=== PATIENT | female | born 1950 | race Caucasian/White ===

== ENCOUNTER → 2017-03-27 | Outpatient (CLI) | payer OTHER ==
[~2017-03-27] MED LIST: CIPR400V6 PO; CLIN300C93 PO; LISI-167 PO; OMNIPAQUE 350 MG/ML, 100ML BOTTLE ONE; OXYC10TA6 PO
== END | disposition home or self-care (01) ==
LOC: CFH 08:45
PROVIDERS: ATTEND Surgery
DX: K43.9 Ventral hernia without obstruction or gangrene (principal); Z90.49 Acquired absence of other specified parts of digestive tract; Z88.0 Allergy status to penicillin; Z88.6 Allergy status to analgesic agent; Z88.1 Allergy status to other antibiotic agents
CPT/HCPCS: 74177; Q9967

== ENCOUNTER 2017-11-08 07:02 | Inpatient (IN) | payer OTHER ==
[~2017-11-08] VITALS: Ht 157.5 cm; Wt 88.2 kg
[2017-11-08] VITALS (7 sets, daily range): BP systolic 131–191; BP diastolic 72–100
[~2017-11-08 07:02] MED LIST changes: +CLIN300C8 PO; -CLIN300C93 PO; -OMNIPAQUE 350 MG/ML, 100ML BOTTLE ONE
[2017-11-08] MEDS ORDERED: SODIUM CHLORIDE 0.9% 1,000ML IVBOLUS ONE (07:30)
[2017-11-08 07:31] LABS: MEAN CORPUSCULAR HEMOGLOBIN 25.4 pg (27.0-34.8); MEAN CORPUSCULAR HGB CONC 31.9 g/dL (32.4-35.8); MEAN CORPUSCULAR VOLUME 79.7 fL (80-100); MEAN PLATELET VOLUME 10.8 fL (7.4-10.4); PLATELET COUNT 178 x10^3/uL (130-400); RED CELL DISTRIBUTION WIDTH 16.2 % (9.6-15.2)
[2017-11-08 07:42] LABS: ALANINE AMINOTRANSFERASE 14 U/L (12-78); ALBUMIN 3.2 g/dL (3.4-5.0); ANION GAP 8 mmol/L (5-15); CALCIUM 9.2 mg/dL (8.5-10.1); CHLORIDE 108 mmol/L (98-107); CREATININE 0.97 mg/dL (0.55-1.02)
[2017-11-08 07:45] LABS: ALKALINE PHOSPHATASE 124 U/L (45-117); BILIRUBIN,TOTAL 1.2 mg/dL (0.2-1.0); TOTAL PROTEIN 8.3 g/dL (6.4-8.2)
[2017-11-08 07:52] LABS: CULTURE INDICATED? YES; MICROSCOPIC INDICATED
[2017-11-08 08:42] LABS: MD YES
[2017-11-08 08:50] LABS: LYMPH#(MANUAL) 0.52 x10^3/uL (1-3.4); LYMPHS% (MANUAL) 4 % (22-44); MONOS#(MANUAL) 0.66 x10^3/uL (0.3-2.7); MONOS% (MANUAL) 5 % (2-9); SEG#(MANUAL) 11.92 x10^3/uL (1.8-6.8); SEGS% (MANUAL) 91 % (42-75)
[2017-11-08 08:51] LABS: LARGE PLATELETS 1+
[2017-11-08 08:52] LABS: <PLATELET ESTIMATE> ADEQUATE
[2017-11-08 08:54] LABS: HYPOCHROMIA 1+; MICROCYTOSIS 1+
[2017-11-08] MEDS ORDERED: CEFTRIAXONE PMX 1GM/50ML 50 ML IVPB ONE (10:00)
[2017-11-08] MEDS ORDERED: CEFTRIAXONE PMX 1GM/50ML 50 ML ONE (10:08)
[2017-11-08] MEDS ORDERED: hydrALAzine 20 MG/ML, 1ML ONE (11:25)
[2017-11-08] MEDS ORDERED: MORPHINE SULFATE 4 MG/ML, 1ML ONE (11:25)
[2017-11-08] MEDS ORDERED: hydrALAzine 20 MG/ML, 1ML IV PRN (11:30)
[2017-11-08] MEDS: MORPHINE SULFATE 4 MG/ML, 1ML IVPush PRN ×2 (11:32→16:04)
[2017-11-08] MEDS ORDERED: hydrALAzine 20 MG/ML, 1ML IVPush PRN (12:00)
[2017-11-08] MEDS ORDERED: OXYcodone IR 5MG TABLET PO PRN (12:00)
[2017-11-08] MEDS ORDERED: hydrALAzine 20 MG/ML, 1ML IV ONE (12:00)
[2017-11-08] MEDS ORDERED: morphine SULFATE 10 MG/ML, 1ML IVPush PRN (12:00)
[2017-11-08] MEDS ORDERED: ACETAMINOPHEN 325 MG TABLET PO PRN (12:00)
[2017-11-08] MEDS ORDERED: LABETALOL 5MG/ML, 20ML IVPush PRN (12:00)
[2017-11-08] MEDS ORDERED: ENALAPRILAT 1.25 MG/ML, 2ML IVPush PRN (12:00)
[2017-11-08] MEDS: ENALAPRILAT 1.25 MG/ML, 2ML IV SCH ×2 (12:30→18:39)
[2017-11-08 12:48] LABS: FREE T4 (FREE THYROXINE) 1.3 ng/dL (0.76-1.46); THYROID STIMULATING HORMONE 1.25 mIU/L (0.358-3.740)
[2017-11-08 12:58] LABS: HEMOGLOBIN A1C 6.3 % (4.2-6.3)
[2017-11-08] MEDS: D5%-0.9% NACL+KCL 20MEQ 1,000 ML IV SCH ×2 (13:35→22:01)
[2017-11-08] MEDS: HEPARIN 5,000 UNITS/ML, 1ML SQ SCH ×2 (13:39→22:01)
[2017-11-08] MEDS ORDERED: ALBUTEROL SULFATE 2.5 MG/3 ML NPPB PRN (15:00)
[2017-11-08] MEDS: ONDANSETRON 2MG/ML, 2ML IVPush PRN (16:04)
[2017-11-08] MEDS ORDERED: PROMETHAZINE 25 MG/ML, 1ML ONE (18:31)
[2017-11-08] MEDS: PROMETHAZINE 25 MG/ML, 1ML IM PRN (18:35)
[2017-11-09] VITALS (8 sets, daily range): BP systolic 147–188; BP diastolic 70–108
[2017-11-09] MEDS: ENALAPRILAT 1.25 MG/ML, 2ML IV SCH ×4 (00:49→18:28)
[2017-11-09] MEDS: ONDANSETRON 2MG/ML, 2ML IVPush PRN ×2 (00:55→15:45)
[2017-11-09 04:38] LABS: BASOPHILS % (AUTO) 0 % (0-1); EOSINOPHILS # (AUTO) 0.02 x10^3/uL (0-0.4); EOSINOPHILS % (AUTO) 0 % (1-7); LYMPHOCYTES % (AUTO) 6 % (22-44); MD NO; MEAN CORPUSCULAR HGB CONC 31.9 g/dL (32.4-35.8); MEAN CORPUSCULAR VOLUME 81.4 fL (80-100); MEAN PLATELET VOLUME 10.6 fL (7.4-10.4); MONOCYTES # (AUTO) 0.89 x10^3/uL (0.2-0.8); MONOCYTES % (AUTO) 7 % (2-9); NEUTROPHILS # (AUTO) 11.92 x10^3/uL (1.8-6.8); NEUTROPHILS % (AUTO) 87 % (42-75); PLATELET COUNT 160 x10^3/uL (130-400); RED BLOOD COUNT 5.22 x10^6/uL (3.82-5.3); RED CELL DISTRIBUTION WIDTH 16.1 % (9.6-15.2)
[2017-11-09 04:48] LABS: ALANINE AMINOTRANSFERASE 12 U/L (12-78); ALBUMIN 2.8 g/dL (3.4-5.0); ANION GAP 6 mmol/L (5-15); CALCIUM 7.8 mg/dL (8.5-10.1); CHLORIDE 114 mmol/L (98-107); CHOLESTEROL, TOTAL 133 mg/dL (140-239); CREATININE 1.03 mg/dL (0.55-1.02)
[2017-11-09 04:50] LABS: ALKALINE PHOSPHATASE 105 U/L (45-117); BILIRUBIN,TOTAL 1.4 mg/dL (0.2-1.0); HDL CHOL % 50 % (28-40); HDL CHOLESTEROL (DIRECT) 67 mg/dL (40-60); LDL CHOLESTEROL,CALCULATED 48 mg/dL (54-169); LDL/HDL RATIO 0.7 (0.5-3.0); TOTAL PROTEIN 6.9 g/dL (6.4-8.2); TRIGLYCERIDES 89 mg/dL (50-200); VLDL CHOLESTEROL 18 mg/dL (0-25)
[2017-11-09] MEDS: D5%-0.9% NACL+KCL 20MEQ 1,000 ML IV SCH ×2 (05:28→20:21)
[2017-11-09] MEDS: HEPARIN 5,000 UNITS/ML, 1ML SQ SCH ×3 (05:32→21:53)
[2017-11-09] MEDS: PROMETHAZINE 25 MG/ML, 1ML IM PRN (13:16)
[2017-11-09] MEDS ORDERED: OMNIPAQUE 350 MG/ML, 150 ML BOTTLE ONE (14:20)
[2017-11-10 00:21] VITALS: BP 120/68
[2017-11-10] MEDS: ENALAPRILAT 1.25 MG/ML, 2ML IV SCH ×4 (00:26→20:00)
[2017-11-10] MEDS: HEPARIN 5,000 UNITS/ML, 1ML SQ SCH ×4 (02:14→22:30)
[2017-11-10 03:20] VITALS: BP 133/71
[2017-11-10 04:28] LABS: BASOPHILS # (AUTO) 0.05 x10^3/uL (0-0.1); BASOPHILS % (AUTO) 0 % (0-1); EOSINOPHILS # (AUTO) 0.05 x10^3/uL (0-0.4); EOSINOPHILS % (AUTO) 0 % (1-7); LYMPHOCYTES # (AUTO) 1.42 x10^3/uL (1-3.4); LYMPHOCYTES % (AUTO) 10 % (22-44); MD NO; MEAN CORPUSCULAR HGB CONC 31.7 g/dL (32.4-35.8); MEAN PLATELET VOLUME 10.9 fL (7.4-10.4); MONOCYTES % (AUTO) 7 % (2-9); NEUTROPHILS # (AUTO) 11.64 x10^3/uL (1.8-6.8); NEUTROPHILS % (AUTO) 82 % (42-75); PLATELET COUNT 159 x10^3/uL (130-400); RED BLOOD COUNT 5.19 x10^6/uL (3.82-5.3); RED CELL DISTRIBUTION WIDTH 16.5 % (9.6-15.2)
[2017-11-10 04:33] LABS: ANION GAP 5 mmol/L (5-15); CALCIUM 8.4 mg/dL (8.5-10.1); CHLORIDE 119 mmol/L (98-107); CREATININE 1.06 mg/dL (0.55-1.02)
[2017-11-10 06:15] VITALS: BP 125/76
[2017-11-10 07:53] VITALS: BP 136/80
[2017-11-10] MEDS: D5%-0.9% NACL+KCL 20MEQ 1,000 ML IV SCH (08:50)
[2017-11-10] MEDS: D5%-0.45% NACL 1,000 ML IV SCH (11:39)
[2017-11-10] MEDS ORDERED: BUPIVACAINE/PF 0.5% ONE (12:20)
[2017-11-10] MEDS ORDERED: EPINEPHRINE 1 MG/ML, 1ML ONE (12:20)
[2017-11-10] MEDS: CIPROFLOXACIN/PMX 400MG/200ML 200 ML IV SCH (12:30)
[2017-11-10] MEDS ORDERED: FENTANYL PF 250 MCG/5ML ONE (12:44)
[2017-11-10] MEDS ORDERED: MIDAZOLAM 1 MG/ML, 2ML ONE (12:44)
[2017-11-10] MEDS ORDERED: ROCURONIUM 10 MG/ML,10ML ONE (12:45)
[2017-11-10] MEDS ORDERED: PROPOFOL 10 MG/ML, 20ML ONE (12:45)
[2017-11-10] MEDS ORDERED: GLYCOPYRROLATE 0.4 MG/2 ML, 2ML ONE ×2 (12:46→16:01)
[2017-11-10] MEDS ORDERED: SUCCINYLCHOLINE 20 MG/ML, 10ML ONE (12:46)
[2017-11-10] MEDS ORDERED: NEOSTIGMINE 1 MG/ML, 10ML ONE (12:46)
[2017-11-10] MEDS ORDERED: DEXAMETHASONE 4 MG/ML, 1ML ONE ×2 (12:47)
[2017-11-10] MEDS ORDERED: SODIUM CHLORIDE 0.9% PF 10ML ONE (12:47)
[2017-11-10] MEDS ORDERED: CEFAZOLIN 1,000 MG ONE ×2 (12:47)
[2017-11-10] MEDS ORDERED: ONDANSETRON 2MG/ML, 2ML ONE ×2 (12:47→17:04)
[2017-11-10] MEDS ORDERED: CIPROFLOXACIN/PMX 400MG/200ML 200 ML ONE (13:23)
[2017-11-10] MEDS ORDERED: PHENYLEPHRINE 10 MG/ML ONE (13:23)
[2017-11-10] MEDS ORDERED: METRONIDAZOLE PMX 500MG/100ML 100 ML ONE (13:23)
[2017-11-10] MEDS ORDERED: FENTANYL PF 100 MCG/2ML IV PRN (13:30)
[2017-11-10] MEDS ORDERED: hydrALAzine 20 MG/ML, 1ML IV PRN (13:30)
[2017-11-10] MEDS ORDERED: PROMETHAZINE 25 MG/ML, 1ML IV PRN (13:30)
[2017-11-10] MEDS ORDERED: ALBUTEROL SULFATE 2.5 MG/3 ML NPPB PRN (13:30)
[2017-11-10] MEDS ORDERED: LABETALOL 5MG/ML, 20ML IV PRN (13:30)
[2017-11-10] MEDS ORDERED: ONDANSETRON 2MG/ML, 2ML IVPush PRN (13:30)
[2017-11-10] MEDS ORDERED: MEPERIDINE/PF 25MG/0.5ML IVPush PRN (13:30)
[2017-11-10] MEDS ORDERED: PROMETHAZINE 12.5 MG SUPP PR PRN (13:30)
[2017-11-10] MEDS ORDERED: BUPIVACAINE/PF-EPI 0.5% 1:200K INFIL ONE (13:46)
[2017-11-10] MEDS ORDERED: HYDROmorphone PCA 30 MG/30 ML ONE (16:25)
[2017-11-10] MEDS: HYDROmorphone PCA 30 MG/30 ML IV PRN ×2 (16:45→16:51)
[2017-11-10 18:36] VITALS: BP 143/68
[2017-11-10] MEDS: ONDANSETRON 2MG/ML, 2ML IVPush PRN (19:07)
[2017-11-10 19:58] VITALS: BP 140/71
[2017-11-10] MEDS ORDERED: ACETAMINOPHEN 325 MG TABLET PO PRN (23:00)
[2017-11-11 00:45] VITALS: BP 134/66
[2017-11-11] MEDS: CIPROFLOXACIN/PMX 400MG/200ML 200 ML IV SCH ×2 (00:45→13:03)
[2017-11-11 03:09] VITALS: BP 128/70
[2017-11-11] MEDS: ENALAPRILAT 1.25 MG/ML, 2ML IV SCH ×4 (03:10→21:29)
[2017-11-11] MEDS ORDERED: HEPARIN 5,000 UNITS/ML, 1ML SQ SCH (04:00)
[2017-11-11 04:26] LABS: MEAN CORPUSCULAR HEMOGLOBIN 25.7 pg (27.0-34.8); MEAN CORPUSCULAR HGB CONC 31.5 g/dL (32.4-35.8); MEAN CORPUSCULAR VOLUME 81.6 fL (80-100); MEAN PLATELET VOLUME 10.8 fL (7.4-10.4); PLATELET COUNT 137 x10^3/uL (130-400); RED CELL DISTRIBUTION WIDTH 16.6 % (9.6-15.2)
[2017-11-11 04:37] LABS: ANION GAP 7 mmol/L (5-15); CALCIUM 8.1 mg/dL (8.5-10.1); CHLORIDE 116 mmol/L (98-107); CREATININE 1.35 mg/dL (0.55-1.02)
[2017-11-11 04:47] LABS: BASOPHILS # (AUTO) 0.02 x10^3/uL (0-0.1); BASOPHILS % (AUTO) 0 % (0-1); EOSINOPHILS % (AUTO) 0 % (1-7); LYMPHOCYTES # (AUTO) 0.52 x10^3/uL (1-3.4); LYMPHOCYTES % (AUTO) 2 % (22-44); MD SCAN; MONOCYTES # (AUTO) 1.16 x10^3/uL (0.2-0.8); MONOCYTES % (AUTO) 5 % (2-9); NEUTROPHILS # (AUTO) 23.91 x10^3/uL (1.8-6.8); NEUTROPHILS % (AUTO) 93 % (42-75)
[2017-11-11] MEDS: D5%-0.45% NACL 1,000 ML IV SCH ×2 (05:12→14:52)
[2017-11-11] MEDS: HEPARIN 5,000 UNITS/ML, 1ML SQ SCH ×3 (06:23→22:29)
[2017-11-11 07:54] VITALS: BP 136/68
[2017-11-11] MEDS: ONDANSETRON 2MG/ML, 2ML IVPush PRN (09:28)
[2017-11-11 14:28] VITALS: BP 133/74
[2017-11-11 19:02] VITALS: BP 132/72
[2017-11-12] MEDS: CIPROFLOXACIN/PMX 400MG/200ML 200 ML IV SCH ×2 (00:24→12:37)
[2017-11-12] MEDS: D5%-0.45% NACL 1,000 ML IV SCH ×3 (00:25→22:07)
[2017-11-12 01:07] VITALS: BP 105/51
[2017-11-12] MEDS: ENALAPRILAT 1.25 MG/ML, 2ML IV SCH ×4 (02:00→20:33)
[2017-11-12 02:10] VITALS: BP 120/56
[2017-11-12 02:40] VITALS: BP 103/52
[2017-11-12 04:46] LABS: MEAN CORPUSCULAR HEMOGLOBIN 25.7 pg (27.0-34.8); MEAN CORPUSCULAR HGB CONC 31.8 g/dL (32.4-35.8); MEAN CORPUSCULAR VOLUME 80.8 fL (80-100); MEAN PLATELET VOLUME 10.5 fL (7.4-10.4); PLATELET COUNT 116 x10^3/uL (130-400); RED BLOOD COUNT 4.32 x10^6/uL (3.82-5.3); RED CELL DISTRIBUTION WIDTH 16.3 % (9.6-15.2)
[2017-11-12 04:53] LABS: ANION GAP 5 mmol/L (5-15); CALCIUM 7.9 mg/dL (8.5-10.1); CHLORIDE 112 mmol/L (98-107); CREATININE 1.12 mg/dL (0.55-1.02)
[2017-11-12 05:59] LABS: BASOPHILS # (AUTO) 0.02 x10^3/uL (0-0.1); BASOPHILS % (AUTO) 0 % (0-1); EOSINOPHILS # (AUTO) 0.04 x10^3/uL (0-0.4); EOSINOPHILS % (AUTO) 0 % (1-7); LYMPHOCYTES # (AUTO) 0.99 x10^3/uL (1-3.4); LYMPHOCYTES % (AUTO) 5 % (22-44); MD SCAN; MONOCYTES % (AUTO) 5 % (2-9); NEUTROPHILS # (AUTO) 16.36 x10^3/uL (1.8-6.8); NEUTROPHILS % (AUTO) 89 % (42-75)
[2017-11-12] MEDS: HEPARIN 5,000 UNITS/ML, 1ML SQ SCH ×3 (06:04→22:03)
[2017-11-12 07:15] VITALS: BP 130/70
[2017-11-12 13:04] VITALS: BP 131/67
[2017-11-12 19:47] VITALS: BP 121/68
[2017-11-13] MEDS: CIPROFLOXACIN/PMX 400MG/200ML 200 ML IV SCH (00:01)
[2017-11-13 01:57] VITALS: BP 124/59
[2017-11-13] MEDS: ENALAPRILAT 1.25 MG/ML, 2ML IV SCH ×4 (02:00→21:14)
[2017-11-13 04:56] LABS: BASOPHILS # (AUTO) 0.07 x10^3/uL (0-0.1); BASOPHILS % (AUTO) 0 % (0-1); EOSINOPHILS # (AUTO) 0.26 x10^3/uL (0-0.4); EOSINOPHILS % (AUTO) 2 % (1-7); LYMPHOCYTES # (AUTO) 0.84 x10^3/uL (1-3.4); LYMPHOCYTES % (AUTO) 5 % (22-44); MD NO; MEAN CORPUSCULAR HEMOGLOBIN 26.1 pg (27.0-34.8); MEAN CORPUSCULAR HGB CONC 32.3 g/dL (32.4-35.8); MEAN CORPUSCULAR VOLUME 80.7 fL (80-100); MEAN PLATELET VOLUME 10.4 fL (7.4-10.4); MONOCYTES % (AUTO) 4 % (2-9); NEUTROPHILS # (AUTO) 14.41 x10^3/uL (1.8-6.8); NEUTROPHILS % (AUTO) 89 % (42-75); PLATELET COUNT 124 x10^3/uL (130-400); RED BLOOD COUNT 4.08 x10^6/uL (3.82-5.3); RED CELL DISTRIBUTION WIDTH 16.3 % (9.6-15.2)
[2017-11-13 05:06] LABS: ANION GAP 6 mmol/L (5-15); CALCIUM 8.2 mg/dL (8.5-10.1); CHLORIDE 107 mmol/L (98-107)
[2017-11-13 05:08] LABS: CREATININE 0.88 mg/dL (0.55-1.02)
[2017-11-13] MEDS: D5%-0.45% NACL 1,000 ML IV SCH (06:19)
[2017-11-13] MEDS: HEPARIN 5,000 UNITS/ML, 1ML SQ SCH ×3 (06:19→21:14)
[2017-11-13 08:21] VITALS: BP 129/61
[2017-11-13] MEDS ORDERED: D5%-0.45% NACL 1,000 ML IV SCH (09:30)
[2017-11-13 14:20] VITALS: BP 121/73
[2017-11-13 20:08] VITALS: BP 131/81
[2017-11-14 01:21] VITALS: BP 123/75
[2017-11-14] MEDS: ENALAPRILAT 1.25 MG/ML, 2ML IV SCH ×4 (01:52→20:20)
[2017-11-14 04:26] LABS: MEAN CORPUSCULAR HEMOGLOBIN 25.6 pg (27.0-34.8); MEAN CORPUSCULAR HGB CONC 32.2 g/dL (32.4-35.8); MEAN CORPUSCULAR VOLUME 79.6 fL (80-100); MEAN PLATELET VOLUME 10.9 fL (7.4-10.4); PLATELET COUNT 141 x10^3/uL (130-400); RED BLOOD COUNT 4.17 x10^6/uL (3.82-5.3); RED CELL DISTRIBUTION WIDTH 15.5 % (9.6-15.2)
[2017-11-14 04:46] LABS: CHLORIDE 109 mmol/L (98-107)
[2017-11-14 04:47] LABS: MD YES
[2017-11-14 04:50] LABS: ANION GAP 5 mmol/L (5-15); BAND#(MANUAL) 0.15 x10^3/uL; BANDS%(MANUAL) 1 % (0-7); CALCIUM 8.3 mg/dL (8.5-10.1); CREATININE 0.84 mg/dL (0.55-1.02); EOS#(MANUAL) 0.45 x10^3/uL (0.0-0.4); EOS% (MANUAL) 3 % (1-7); LYMPH#(MANUAL) 1.66 x10^3/uL (1-3.4); LYMPHS% (MANUAL) 11 % (22-44); MONOS#(MANUAL) 0.76 x10^3/uL (0.3-2.7); MONOS% (MANUAL) 5 % (2-9); MYELOCYTES# (MANUAL) 0.15 x10^3/uL (0-0); MYELOCYTES% (MANUAL) 1 % (0-0); SEG#(MANUAL) 11.93 x10^3/uL (1.8-6.8); SEGS% (MANUAL) 79 % (42-75)
[2017-11-14 04:51] LABS: <PLATELET ESTIMATE> ADEQUATE; ANISOCYTOSIS 1+; LARGE PLATELETS 1+
[2017-11-14] MEDS: HEPARIN 5,000 UNITS/ML, 1ML SQ SCH ×3 (05:57→22:41)
[2017-11-14 07:46] VITALS: BP 112/72
[2017-11-14 13:22] VITALS: BP 124/77
[2017-11-14 16:20] LABS: ANION GAP 6 mmol/L (5-15); CALCIUM 8.3 mg/dL (8.5-10.1); CHLORIDE 107 mmol/L (98-107)
[2017-11-14 16:22] LABS: CREATININE 0.85 mg/dL (0.55-1.02)
[2017-11-14 19:47] VITALS: BP 147/82
[2017-11-14 23:29] LABS: CULTURE INDICATED? YES; MICROSCOPIC INDICATED
[2017-11-15 01:13] VITALS: BP 147/80
[2017-11-15] MEDS: ENALAPRILAT 1.25 MG/ML, 2ML IV SCH ×4 (02:29→21:19)
[2017-11-15 04:58] LABS: BASOPHILS # (AUTO) 0.01 x10^3/uL (0-0.1); BASOPHILS % (AUTO) 0 % (0-1); EOSINOPHILS # (AUTO) 0.41 x10^3/uL (0-0.4); EOSINOPHILS % (AUTO) 3 % (1-7); LYMPHOCYTES # (AUTO) 0.85 x10^3/uL (1-3.4); LYMPHOCYTES % (AUTO) 6 % (22-44); MD NO; MEAN CORPUSCULAR HEMOGLOBIN 25.8 pg (27.0-34.8); MEAN CORPUSCULAR HGB CONC 32.1 g/dL (32.4-35.8); MEAN CORPUSCULAR VOLUME 80.4 fL (80-100); MEAN PLATELET VOLUME 10.6 fL (7.4-10.4); MONOCYTES # (AUTO) 0.93 x10^3/uL (0.2-0.8); MONOCYTES % (AUTO) 6 % (2-9); NEUTROPHILS % (AUTO) 85 % (42-75); PLATELET COUNT 154 x10^3/uL (130-400); RED BLOOD COUNT 4.24 x10^6/uL (3.82-5.3); RED CELL DISTRIBUTION WIDTH 15.6 % (9.6-15.2)
[2017-11-15 05:06] LABS: ANION GAP 4 mmol/L (5-15); CALCIUM 8.4 mg/dL (8.5-10.1); CHLORIDE 107 mmol/L (98-107); CREATININE 0.81 mg/dL (0.55-1.02)
[2017-11-15] MEDS: HEPARIN 5,000 UNITS/ML, 1ML SQ SCH ×3 (06:00→22:40)
[2017-11-15 07:09] VITALS: BP 131/77
[2017-11-15 13:16] VITALS: BP 129/75
[2017-11-15 19:01] VITALS: BP 151/77
[2017-11-16] MEDS: ENALAPRILAT 1.25 MG/ML, 2ML IV SCH ×4 (03:09→21:04)
[2017-11-16 03:11] VITALS: BP 143/80
[2017-11-16 04:42] LABS: BASOPHILS # (AUTO) 0.02 x10^3/uL (0-0.1); BASOPHILS % (AUTO) 0 % (0-1); EOSINOPHILS % (AUTO) 3 % (1-7); LYMPHOCYTES # (AUTO) 1.29 x10^3/uL (1-3.4); LYMPHOCYTES % (AUTO) 8 % (22-44); MD NO; MEAN CORPUSCULAR HEMOGLOBIN 25.5 pg (27.0-34.8); MEAN CORPUSCULAR HGB CONC 31.9 g/dL (32.4-35.8); MEAN CORPUSCULAR VOLUME 79.9 fL (80-100); MEAN PLATELET VOLUME 10.3 fL (7.4-10.4); MONOCYTES % (AUTO) 7 % (2-9); NEUTROPHILS # (AUTO) 13.22 x10^3/uL (1.8-6.8); NEUTROPHILS % (AUTO) 82 % (42-75); PLATELET COUNT 180 x10^3/uL (130-400); RED BLOOD COUNT 4.27 x10^6/uL (3.82-5.3); RED CELL DISTRIBUTION WIDTH 15.6 % (9.6-15.2)
[2017-11-16 04:49] LABS: ANION GAP 6 mmol/L (5-15); CALCIUM 8.2 mg/dL (8.5-10.1); CHLORIDE 107 mmol/L (98-107); CREATININE 0.85 mg/dL (0.55-1.02)
[2017-11-16] MEDS: HEPARIN 5,000 UNITS/ML, 1ML SQ SCH ×3 (06:19→22:37)
[2017-11-16 07:58] VITALS: BP 142/78
[2017-11-16 10:31] LABS: CLOSTRIDIUM DIFFICILE TOXIN POSITIVE (Negative)
[2017-11-16 10:34] LABS: CLOSTRIDIUM DIFFICILE ANTIGEN POSITIVE
[2017-11-16 13:01] VITALS: BP 144/83
[2017-11-16] MEDS: metroNIDAZOLE 500 MG TABLET PO SCH ×2 (16:31→22:37)
[2017-11-16 19:36] VITALS: BP 143/74
[2017-11-17 02:24] VITALS: BP 144/83
[2017-11-17] MEDS: ENALAPRILAT 1.25 MG/ML, 2ML IV SCH ×4 (03:10→21:12)
[2017-11-17] MEDS: ONDANSETRON 2MG/ML, 2ML IVPush PRN (03:18)
[2017-11-17 04:34] LABS: MEAN CORPUSCULAR HEMOGLOBIN 25.8 pg (27.0-34.8); MEAN CORPUSCULAR HGB CONC 32.4 g/dL (32.4-35.8); MEAN CORPUSCULAR VOLUME 79.6 fL (80-100); MEAN PLATELET VOLUME 10.8 fL (7.4-10.4); PLATELET COUNT 197 x10^3/uL (130-400); RED BLOOD COUNT 4.31 x10^6/uL (3.82-5.3); RED CELL DISTRIBUTION WIDTH 15.7 % (9.6-15.2)
[2017-11-17 04:42] LABS: ANION GAP 6 mmol/L (5-15); CHLORIDE 106 mmol/L (98-107); CREATININE 0.84 mg/dL (0.55-1.02)
[2017-11-17] MEDS: HEPARIN 5,000 UNITS/ML, 1ML SQ SCH ×3 (05:09→22:40)
[2017-11-17] MEDS: metroNIDAZOLE 500 MG TABLET PO SCH ×4 (05:09→22:40)
[2017-11-17 06:20] LABS: MD YES
[2017-11-17 06:22] LABS: BAND#(MANUAL) 0.17 x10^3/uL; BANDS%(MANUAL) 1 % (0-7); EOS% (MANUAL) 3 % (1-7); LYMPH#(MANUAL) 1.51 x10^3/uL (1-3.4); LYMPHS% (MANUAL) 9 % (22-44); METAMYELOCYTES# (MANUAL) 0.17 x10^3/uL (0-0); METAMYELOCYTES% (MANUAL) 1 % (0-1); MONOS#(MANUAL) 1.34 x10^3/uL (0.3-2.7); MONOS% (MANUAL) 8 % (2-9); SEGS% (MANUAL) 78 % (42-75)
[2017-11-17 06:23] LABS: ANISOCYTOSIS 1+; POLYCHROMASIA 1+
[2017-11-17 06:24] LABS: <PLATELET ESTIMATE> ADEQUATE; LARGE PLATELETS 1+
[2017-11-17 08:11] VITALS: BP 105/72
[2017-11-17 12:18] VITALS: BP 130/77
[2017-11-17 18:56] VITALS: BP 107/67
[2017-11-17 20:03] VITALS: BP 147/83
[2017-11-18 03:13] VITALS: BP 122/70
[2017-11-18] MEDS: ENALAPRILAT 1.25 MG/ML, 2ML IV SCH ×4 (03:15→22:13)
[2017-11-18 04:25] LABS: MEAN CORPUSCULAR HEMOGLOBIN 26.2 pg (27.0-34.8); MEAN CORPUSCULAR HGB CONC 32.6 g/dL (32.4-35.8); MEAN CORPUSCULAR VOLUME 80.3 fL (80-100); MEAN PLATELET VOLUME 10.1 fL (7.4-10.4); PLATELET COUNT 236 x10^3/uL (130-400); RED CELL DISTRIBUTION WIDTH 15.9 % (9.6-15.2)
[2017-11-18 04:33] LABS: ANION GAP 5 mmol/L (5-15); CALCIUM 8.1 mg/dL (8.5-10.1); CHLORIDE 108 mmol/L (98-107); CREATININE 0.93 mg/dL (0.55-1.02)
[2017-11-18 04:40] LABS: MD YES
[2017-11-18 04:41] LABS: BAND#(MANUAL) 0.37 x10^3/uL; BANDS%(MANUAL) 2 % (0-7); BASOS#(MANUAL) 0.37 x10^3/uL (0-0.1); BASOS% (MANUAL) 2 % (0-1); EOS#(MANUAL) 0.37 x10^3/uL (0.0-0.4); EOS% (MANUAL) 2 % (1-7); LYMPH#(MANUAL) 1.86 x10^3/uL (1-3.4); LYMPHS% (MANUAL) 10 % (22-44); MONOS#(MANUAL) 1.12 x10^3/uL (0.3-2.7); MONOS% (MANUAL) 6 % (2-9); MYELOCYTES# (MANUAL) 0.37 x10^3/uL (0-0); MYELOCYTES% (MANUAL) 2 % (0-0); SEG#(MANUAL) 14.14 x10^3/uL (1.8-6.8); SEGS% (MANUAL) 76 % (42-75)
[2017-11-18 04:42] LABS: <PLATELET ESTIMATE> ADEQUATE; ANISOCYTOSIS 1+; LARGE PLATELETS 1+; POLYCHROMASIA 1+
[2017-11-18] MEDS: ONDANSETRON 2MG/ML, 2ML IVPush PRN ×2 (05:16→22:13)
[2017-11-18] MEDS: metroNIDAZOLE 500 MG TABLET PO SCH ×4 (05:16→22:14)
[2017-11-18] MEDS: HEPARIN 5,000 UNITS/ML, 1ML SQ SCH ×3 (06:00→22:13)
[2017-11-18 07:40] VITALS: BP 135/78
[2017-11-18 12:47] VITALS: BP 143/83
[2017-11-18 20:11] VITALS: BP 134/79
[2017-11-19 02:14] VITALS: BP 126/77
[2017-11-19] MEDS: metroNIDAZOLE 500 MG TABLET PO SCH (04:19)
[2017-11-19] MEDS: ENALAPRILAT 1.25 MG/ML, 2ML IV SCH ×3 (04:20→17:28)
[2017-11-19 04:35] LABS: MEAN CORPUSCULAR HEMOGLOBIN 25.5 pg (27.0-34.8); MEAN CORPUSCULAR VOLUME 79.7 fL (80-100); MEAN PLATELET VOLUME 9.9 fL (7.4-10.4); PLATELET COUNT 256 x10^3/uL (130-400); RED BLOOD COUNT 4.44 x10^6/uL (3.82-5.3); RED CELL DISTRIBUTION WIDTH 15.9 % (9.6-15.2)
[2017-11-19 04:51] LABS: ANION GAP 6 mmol/L (5-15); CHLORIDE 107 mmol/L (98-107); CREATININE 0.93 mg/dL (0.55-1.02)
[2017-11-19 05:48] LABS: MD YES
[2017-11-19 05:49] LABS: BAND#(MANUAL) 0.84 x10^3/uL; BANDS%(MANUAL) 4 % (0-7); BASOS#(MANUAL) 0.21 x10^3/uL (0-0.1); BASOS% (MANUAL) 1 % (0-1); EOS#(MANUAL) 0.42 x10^3/uL (0.0-0.4); EOS% (MANUAL) 2 % (1-7); LYMPH#(MANUAL) 0.63 x10^3/uL (1-3.4); LYMPHS% (MANUAL) 3 % (22-44); MONOS#(MANUAL) 0.84 x10^3/uL (0.3-2.7); MONOS% (MANUAL) 4 % (2-9); SEG#(MANUAL) 18.15 x10^3/uL (1.8-6.8); SEGS% (MANUAL) 86 % (42-75)
[2017-11-19 05:50] LABS: <PLATELET ESTIMATE> ADEQUATE; ANISOCYTOSIS 1+; LARGE PLATELETS 1+; POLYCHROMASIA 1+
[2017-11-19] MEDS: HEPARIN 5,000 UNITS/ML, 1ML SQ SCH ×3 (06:31→21:20)
[2017-11-19 06:50] VITALS: BP 123/82
[2017-11-19] MEDS: VANCOMYCIN 50 MG/ML ORAL SUSP PO SCH ×3 (08:26→21:19)
[2017-11-19 13:20] VITALS: BP 123/74
[2017-11-19 20:00] VITALS: BP 127/73
[2017-11-20] MEDS: ENALAPRILAT 1.25 MG/ML, 2ML IV SCH ×4 (00:32→20:36)
[2017-11-20 02:00] VITALS: BP 119/70
[2017-11-20] MEDS: VANCOMYCIN 50 MG/ML ORAL SUSP PO SCH ×4 (04:18→21:53)
[2017-11-20 04:42] LABS: MEAN CORPUSCULAR HEMOGLOBIN 25.8 pg (27.0-34.8); MEAN CORPUSCULAR HGB CONC 32.2 g/dL (32.4-35.8); MEAN CORPUSCULAR VOLUME 79.9 fL (80-100); MEAN PLATELET VOLUME 9.9 fL (7.4-10.4); PLATELET COUNT 272 x10^3/uL (130-400); RED BLOOD COUNT 4.32 x10^6/uL (3.82-5.3); RED CELL DISTRIBUTION WIDTH 15.6 % (9.6-15.2)
[2017-11-20 04:57] LABS: CHLORIDE 104 mmol/L (98-107)
[2017-11-20 05:06] LABS: ALANINE AMINOTRANSFERASE 21 U/L (12-78); ALKALINE PHOSPHATASE 92 U/L (45-117); ANION GAP 9 mmol/L (5-15); BILIRUBIN,TOTAL 0.9 mg/dL (0.2-1.0); CALCIUM 7.9 mg/dL (8.5-10.1); CREATININE 0.95 mg/dL (0.55-1.02); TOTAL PROTEIN 6.2 g/dL (6.4-8.2)
[2017-11-20 05:55] LABS: MD YES
[2017-11-20 05:56] LABS: <PLATELET ESTIMATE> ADEQUATE; ANISOCYTOSIS 1+; BAND#(MANUAL) 0.23 x10^3/uL; BANDS%(MANUAL) 1 % (0-7); EOS#(MANUAL) 0.45 x10^3/uL (0.0-0.4); EOS% (MANUAL) 2 % (1-7); LYMPH#(MANUAL) 1.14 x10^3/uL (1-3.4); LYMPHS% (MANUAL) 5 % (22-44); MONOS#(MANUAL) 0.91 x10^3/uL (0.3-2.7); MONOS% (MANUAL) 4 % (2-9); POLYCHROMASIA 1+; SEG#(MANUAL) 19.98 x10^3/uL (1.8-6.8); SEGS% (MANUAL) 88 % (42-75)
[2017-11-20 05:57] LABS: LARGE PLATELETS 1+
[2017-11-20] MEDS: HEPARIN 5,000 UNITS/ML, 1ML SQ SCH ×3 (06:27→23:02)
[2017-11-20 07:57] VITALS: BP 117/70
[2017-11-20] MEDS: SODIUM CHLORIDE 0.9% 1,000 ML IV SCH ×3 (07:58→23:02)
[2017-11-20 08:10] VITALS: BP 112/70
[2017-11-20 09:44] LABS: CULTURE INDICATED? YES; MICROSCOPIC AUTO
[2017-11-20] MEDS ORDERED: OMNIPAQUE 350 MG/ML, 100ML BOTTLE ONE (12:28)
[2017-11-20] MEDS ORDERED: VANCOMYCIN PER PHARMACY MC PRN (13:30)
[2017-11-20 13:35] VITALS: BP 112/72
[2017-11-20] MEDS ORDERED: PHARMACOKINETIC CONSULTATION MC ONE (14:00)
[2017-11-20] MEDS ORDERED: PHARMACOKINETIC MONITORING MC PRN (14:00)
[2017-11-20] MEDS: MEROPENEM 1 GM in SODIUM CHLORIDE 0.9% 100 ML IV SCH ×2 (15:22→23:02)
[2017-11-20] MEDS: VANCOMYCIN 1,800 MG in SODIUM CHLORIDE 0.9% 250 ML IV SCH (16:23)
[2017-11-20] MEDS ORDERED: FENTANYL PF 250 MCG/5ML ONE (16:54)
[2017-11-20] MEDS ORDERED: LIDOCAINE GEL 2%, 5ML ONE (16:56)
[2017-11-20] MEDS ORDERED: PHENYLEPHRINE 10 MG/ML ONE (17:34)
[2017-11-20] MEDS ORDERED: FENTANYL PF 100 MCG/2ML ONE (18:53)
[2017-11-20] MEDS ORDERED: NEOSTIGMINE 1 MG/ML, 10ML ONE (19:05)
[2017-11-20] MEDS ORDERED: PROPOFOL 10 MG/ML, 20ML ONE (19:05)
[2017-11-20] MEDS ORDERED: DEXAMETHASONE 4 MG/ML, 1ML ONE (19:05)
[2017-11-20] MEDS ORDERED: ONDANSETRON 2MG/ML, 2ML ONE (19:05)
[2017-11-20] MEDS ORDERED: SUCCINYLCHOLINE 20 MG/ML, 10ML ONE (19:05)
[2017-11-20] MEDS ORDERED: GLYCOPYRROLATE 0.2MG/1ML, 5ML ONE (19:05)
[2017-11-20] MEDS ORDERED: CEFAZOLIN 1,000 MG ONE (19:05)
[2017-11-20] MEDS: FENTANYL PF 100 MCG/2ML IV PRN ×2 (19:08→19:25)
[2017-11-20 20:00] VITALS: BP 121/73
[2017-11-20] MEDS ORDERED: ONDANSETRON 2MG/ML, 2ML IVPush PRN (20:00)
[2017-11-20] MEDS ORDERED: LABETALOL 5MG/ML, 20ML IV PRN (20:00)
[2017-11-20] MEDS ORDERED: ONDANSETRON 2MG/ML, 2ML IV PRN (20:00)
[2017-11-20] MEDS ORDERED: hydrALAzine 20 MG/ML, 1ML IV PRN (20:00)
[2017-11-20] MEDS ORDERED: MEPERIDINE/PF 25MG/0.5ML IVPush PRN (20:00)
[2017-11-20] MEDS ORDERED: MIDAZOLAM 1 MG/ML, 2ML IV PRN (20:00)
[2017-11-20] MEDS ORDERED: ALBUTEROL/IPRATROPIUM 2.5MG/0.5MG, 3 ML NPPB PRN (20:00)
[2017-11-20] MEDS ORDERED: ALBUTEROL SULFATE 2.5 MG/3 ML NPPB PRN (20:00)
[2017-11-20] MEDS ORDERED: PROMETHAZINE 25 MG/ML, 1ML IV PRN (20:00)
[2017-11-20] MEDS ORDERED: FENTANYL PF 100 MCG/2ML IVPush PRN (20:30)
[2017-11-21 02:00] VITALS: BP 117/70
[2017-11-21] MEDS: ENALAPRILAT 1.25 MG/ML, 2ML IV SCH ×2 (02:37→07:59)
[2017-11-21 03:40] VITALS: BP 120/70
[2017-11-21] MEDS: VANCOMYCIN 50 MG/ML ORAL SUSP PO SCH ×4 (04:12→20:54)
[2017-11-21 04:54] LABS: MEAN CORPUSCULAR HEMOGLOBIN 25.7 pg (27.0-34.8); MEAN CORPUSCULAR HGB CONC 32.3 g/dL (32.4-35.8); MEAN CORPUSCULAR VOLUME 79.6 fL (80-100); MEAN PLATELET VOLUME 9.4 fL (7.4-10.4); PLATELET COUNT 263 x10^3/uL (130-400); RED BLOOD COUNT 4.13 x10^6/uL (3.82-5.3)
[2017-11-21 05:07] LABS: ALANINE AMINOTRANSFERASE 17 U/L (12-78); ALBUMIN 1.7 g/dL (3.4-5.0); ANION GAP 6 mmol/L (5-15); CALCIUM 7.3 mg/dL (8.5-10.1); CHLORIDE 110 mmol/L (98-107)
[2017-11-21 05:10] LABS: ALKALINE PHOSPHATASE 79 U/L (45-117); BILIRUBIN,TOTAL 0.9 mg/dL (0.2-1.0); CREATININE 0.91 mg/dL (0.55-1.02); TOTAL PROTEIN 5.7 g/dL (6.4-8.2)
[2017-11-21 05:27] LABS: BASOPHILS # (AUTO) 0.01 x10^3/uL (0-0.1); BASOPHILS % (AUTO) 0 % (0-1); EOSINOPHILS # (AUTO) 0.07 x10^3/uL (0-0.4); EOSINOPHILS % (AUTO) 0 % (1-7); LYMPHOCYTES # (AUTO) 1.06 x10^3/uL (1-3.4); LYMPHOCYTES % (AUTO) 4 % (22-44); MD SCAN; MONOCYTES # (AUTO) 1.82 x10^3/uL (0.2-0.8); MONOCYTES % (AUTO) 7 % (2-9); NEUTROPHILS # (AUTO) 23.84 x10^3/uL (1.8-6.8); NEUTROPHILS % (AUTO) 89 % (42-75)
[2017-11-21] MEDS: SODIUM CHLORIDE 0.9% 1,000 ML IV SCH (05:32)
[2017-11-21 06:51] VITALS: BP 97/50
[2017-11-21] MEDS: MEROPENEM 1 GM in SODIUM CHLORIDE 0.9% 100 ML IV SCH ×3 (07:58→23:08)
[2017-11-21] MEDS: HEPARIN 5,000 UNITS/ML, 1ML SQ SCH ×3 (07:59→23:08)
[2017-11-21] MEDS ORDERED: TPN PER PHARMACY IV SCH (12:00)
[2017-11-21 14:53] VITALS: BP 106/67
[2017-11-21] MEDS: VANCOMYCIN 1,800 MG in SODIUM CHLORIDE 0.9% 250 ML IV SCH (16:21)
[2017-11-21] MEDS ORDERED: DEXTROSE 70% IV SCH (17:00)
[2017-11-21] MEDS ORDERED: DEXTROSE 10% 500 ML IV PRN (17:00)
[2017-11-21] MEDS ORDERED: AMINO ACID 10% IV SCH (17:00)
[2017-11-21] MEDS ORDERED: FAT EMULSIONS IV SCH (17:00)
[2017-11-21] MEDS ORDERED: DEXTROSE 50%, 50ML SYRINGE IVPush PRN (17:00)
[2017-11-21] MEDS ORDERED: [UNRECOGNIZED DRUG - OTHER] IV SCH (17:00)
[2017-11-21] MEDS ORDERED: ENALAPRILAT 1.25 MG/ML, 2ML IV PRN (18:30)
[2017-11-21 20:53] VITALS: BP 120/77
[2017-11-21] MEDS: INSULIN REGULAR LOW DOSE Q6H X 48HRS SQ-INSULIN SCH (20:58)
[2017-11-21] MEDS ORDERED: SODIUM CHLORIDE 0.9% 1,000 ML IV SCH (22:30)
[2017-11-22 01:17] VITALS: BP 107/69
[2017-11-22] MEDS: INSULIN REGULAR LOW DOSE Q6H X 48HRS SQ-INSULIN SCH ×4 (03:00→20:57)
[2017-11-22] MEDS: VANCOMYCIN 50 MG/ML ORAL SUSP PO SCH ×4 (03:36→22:47)
[2017-11-22 03:55] LABS: MEAN CORPUSCULAR HEMOGLOBIN 25.5 pg (27.0-34.8); MEAN CORPUSCULAR HGB CONC 31.8 g/dL (32.4-35.8); MEAN CORPUSCULAR VOLUME 80.1 fL (80-100); MEAN PLATELET VOLUME 9.5 fL (7.4-10.4); PLATELET COUNT 280 x10^3/uL (130-400); RED BLOOD COUNT 3.93 x10^6/uL (3.82-5.3); RED CELL DISTRIBUTION WIDTH 16.5 % (9.6-15.2)
[2017-11-22 04:01] LABS: ALBUMIN 1.6 g/dL (3.4-5.0); ANION GAP 5 mmol/L (5-15); CALCIUM 7.2 mg/dL (8.5-10.1); CHLORIDE 112 mmol/L (98-107)
[2017-11-22 04:08] LABS: ALANINE AMINOTRANSFERASE 14 U/L (12-78); ALKALINE PHOSPHATASE 71 U/L (45-117); BILIRUBIN,TOTAL 0.5 mg/dL (0.2-1.0); CREATININE 0.87 mg/dL (0.55-1.02); PREALBUMIN 5.2 mg/dL (20.0-40.0); TOTAL PROTEIN 5.7 g/dL (6.4-8.2); TRIGLYCERIDES 101 mg/dL (50-200)
[2017-11-22 04:37] LABS: BASOPHILS # (AUTO) 0.01 x10^3/uL (0-0.1); BASOPHILS % (AUTO) 0 % (0-1); EOSINOPHILS # (AUTO) 0.29 x10^3/uL (0-0.4); EOSINOPHILS % (AUTO) 1 % (1-7); LYMPHOCYTES # (AUTO) 1.06 x10^3/uL (1-3.4); LYMPHOCYTES % (AUTO) 5 % (22-44); MD SCAN; MONOCYTES # (AUTO) 1.44 x10^3/uL (0.2-0.8); MONOCYTES % (AUTO) 7 % (2-9); NEUTROPHILS # (AUTO) 17.73 x10^3/uL (1.8-6.8); NEUTROPHILS % (AUTO) 86 % (42-75)
[2017-11-22 07:05] VITALS: BP 136/68
[2017-11-22] MEDS: HEPARIN 5,000 UNITS/ML, 1ML SQ SCH ×3 (07:56→22:49)
[2017-11-22] MEDS: MEROPENEM 1 GM in SODIUM CHLORIDE 0.9% 100 ML IV SCH ×2 (07:56→18:52)
[2017-11-22] MEDS: MICAFUNGIN 100 MG in SODIUM CHLORIDE 0.9% 100 ML IV SCH (13:06)
[2017-11-22] MEDS: VANCOMYCIN 1,800 MG in SODIUM CHLORIDE 0.9% 250 ML IV SCH (15:44)
[2017-11-22] MEDS ORDERED: AMINO ACID 10% IV SCH ×2 (17:00)
[2017-11-22] MEDS ORDERED: [UNRECOGNIZED DRUG - OTHER] IV SCH (17:00)
[2017-11-22] MEDS ORDERED: [UNRECOGNIZED DRUG - OTHER] IV SCH (17:00)
[2017-11-22] MEDS ORDERED: FAT EMULSIONS IV SCH ×2 (17:00)
[2017-11-22] MEDS ORDERED: DEXTROSE 70% IV SCH ×2 (17:00)
[2017-11-22 19:46] VITALS: BP 151/82
[2017-11-23 02:21] VITALS: BP 159/76
[2017-11-23] MEDS: INSULIN REGULAR LOW DOSE Q6H X 48HRS SQ-INSULIN SCH ×3 (03:06→15:23)
[2017-11-23] MEDS: VANCOMYCIN 50 MG/ML ORAL SUSP PO SCH ×4 (04:04→21:31)
[2017-11-23] MEDS: MEROPENEM 1 GM in SODIUM CHLORIDE 0.9% 100 ML IV SCH ×3 (05:15→21:31)
[2017-11-23 05:51] LABS: CHLORIDE 107 mmol/L (98-107)
[2017-11-23 05:56] LABS: ANION GAP 6 mmol/L (5-15); CALCIUM 7.8 mg/dL (8.5-10.1); CREATININE 0.89 mg/dL (0.55-1.02)
[2017-11-23] MEDS: HEPARIN 5,000 UNITS/ML, 1ML SQ SCH ×3 (06:32→23:30)
[2017-11-23 08:10] VITALS: BP 158/85
[2017-11-23] MEDS: MICAFUNGIN 100 MG in SODIUM CHLORIDE 0.9% 100 ML IV SCH (11:34)
[2017-11-23 12:31] VITALS: BP 158/87
[2017-11-23] MEDS: VANCOMYCIN 1,800 MG in SODIUM CHLORIDE 0.9% 250 ML IV SCH (14:42)
[2017-11-23] MEDS: FILTER, DISP 1.2 MICRON FOR TPN/PVN IV PRN (16:40)
[2017-11-23] MEDS ORDERED: AMINO ACID 10% IV SCH (17:00)
[2017-11-23] MEDS ORDERED: [UNRECOGNIZED DRUG - OTHER] IV SCH (17:00)
[2017-11-23] MEDS ORDERED: DEXTROSE 70% IV SCH (17:00)
[2017-11-23] MEDS ORDERED: FAT EMULSIONS IV SCH (17:00)
[2017-11-23 19:20] VITALS: BP 168/73
[2017-11-23 19:57] VITALS: BP 145/84
[2017-11-24 01:15] VITALS: BP 152/80
[2017-11-24] MEDS: VANCOMYCIN 50 MG/ML ORAL SUSP PO SCH ×4 (04:05→22:19)
[2017-11-24] MEDS: SODIUM CHLORIDE 0.9% 1,000 ML IV SCH (05:42)
[2017-11-24] MEDS: MEROPENEM 1 GM in SODIUM CHLORIDE 0.9% 100 ML IV SCH ×3 (05:42→22:22)
[2017-11-24 06:13] LABS: ANION GAP 7 mmol/L (5-15); CALCIUM 7.6 mg/dL (8.5-10.1); CHLORIDE 105 mmol/L (98-107)
[2017-11-24 06:14] LABS: CREATININE 0.81 mg/dL (0.55-1.02)
[2017-11-24 07:12] LABS: MD YES; MEAN CORPUSCULAR HEMOGLOBIN 25.6 pg (27.0-34.8); MEAN CORPUSCULAR HGB CONC 32.2 g/dL (32.4-35.8); MEAN CORPUSCULAR VOLUME 79.6 fL (80-100); PLATELET COUNT 328 x10^3/uL (130-400); RED BLOOD COUNT 4.08 x10^6/uL (3.82-5.3); RED CELL DISTRIBUTION WIDTH 15.9 % (9.6-15.2)
[2017-11-24] MEDS: HEPARIN 5,000 UNITS/ML, 1ML SQ SCH ×2 (07:14→16:05)
[2017-11-24 07:24] LABS: ANISOCYTOSIS 1+; BAND#(MANUAL) 0.15 x10^3/uL; BANDS%(MANUAL) 1 % (0-7); EOS#(MANUAL) 0.15 x10^3/uL (0.0-0.4); EOS% (MANUAL) 1 % (1-7); LYMPH#(MANUAL) 1.04 x10^3/uL (1-3.4); LYMPHS% (MANUAL) 7 % (22-44); MICROCYTOSIS 1+; MONOS#(MANUAL) 1.04 x10^3/uL (0.3-2.7); MONOS% (MANUAL) 7 % (2-9); SEG#(MANUAL) 12.43 x10^3/uL (1.8-6.8); SEGS% (MANUAL) 84 % (42-75)
[2017-11-24 07:25] LABS: <PLATELET ESTIMATE> ADEQUATE; LARGE PLATELETS 1+; POLYCHROMASIA 1+
[2017-11-24 10:05] VITALS: BP 153/86
[2017-11-24] MEDS: INSULIN REGULAR LOW DOSE QDAY SQ-INSULIN SCH (10:28)
[2017-11-24] MEDS: MICAFUNGIN 100 MG in SODIUM CHLORIDE 0.9% 100 ML IV SCH (12:15)
[2017-11-24] MEDS ORDERED: GASTROGRAFIN 120 ML SOLN PO ONE (13:59)
[2017-11-24 15:41] VITALS: BP 155/80
[2017-11-24] MEDS ORDERED: VANCOMYCIN 1,800 MG in SODIUM CHLORIDE 0.9% 250 ML IV SCH (16:00)
[2017-11-24] MEDS: VANCOMYCIN 1,500 MG in SODIUM CHLORIDE 0.9% 250 ML IV SCH (16:05)
[2017-11-24] MEDS: FILTER, DISP 1.2 MICRON FOR TPN/PVN IV PRN (16:15)
[2017-11-24] MEDS ORDERED: FAT EMULSIONS IV SCH (17:00)
[2017-11-24] MEDS ORDERED: DEXTROSE 70% IV SCH (17:00)
[2017-11-24] MEDS ORDERED: AMINO ACID 10% IV SCH (17:00)
[2017-11-24] MEDS ORDERED: [UNRECOGNIZED DRUG - OTHER] IV SCH (17:00)
[2017-11-24 19:08] VITALS: BP 131/82
[2017-11-25] MEDS: HEPARIN 5,000 UNITS/ML, 1ML SQ SCH ×3 (00:26→17:27)
[2017-11-25 02:06] VITALS: BP 163/86
[2017-11-25] MEDS: VANCOMYCIN 50 MG/ML ORAL SUSP PO SCH ×4 (04:36→22:22)
[2017-11-25 04:39] VITALS: BP 141/78
[2017-11-25 05:50] LABS: ANION GAP 8 mmol/L (5-15); CALCIUM 7.9 mg/dL (8.5-10.1); CHLORIDE 104 mmol/L (98-107); CREATININE 0.88 mg/dL (0.55-1.02)
[2017-11-25 06:14] LABS: MEAN CORPUSCULAR HEMOGLOBIN 25.9 pg (27.0-34.8); MEAN CORPUSCULAR HGB CONC 32.5 g/dL (32.4-35.8); MEAN CORPUSCULAR VOLUME 79.9 fL (80-100); MEAN PLATELET VOLUME 9.9 fL (7.4-10.4); PLATELET COUNT 338 x10^3/uL (130-400); RED BLOOD COUNT 4.37 x10^6/uL (3.82-5.3); RED CELL DISTRIBUTION WIDTH 15.9 % (9.6-15.2)
[2017-11-25] MEDS: MEROPENEM 1 GM in SODIUM CHLORIDE 0.9% 100 ML IV SCH ×3 (06:16→22:22)
[2017-11-25 06:29] LABS: BASOPHILS # (AUTO) 0.09 x10^3/uL (0-0.1); BASOPHILS % (AUTO) 1 % (0-1); EOSINOPHILS # (AUTO) 0.35 x10^3/uL (0-0.4); EOSINOPHILS % (AUTO) 3 % (1-7); LYMPHOCYTES % (AUTO) 10 % (22-44); MD SCAN; MONOCYTES # (AUTO) 1.66 x10^3/uL (0.2-0.8); MONOCYTES % (AUTO) 12 % (2-9); NEUTROPHILS # (AUTO) 10.61 x10^3/uL (1.8-6.8); NEUTROPHILS % (AUTO) 75 % (42-75)
[2017-11-25 07:34] VITALS: BP 149/83
[2017-11-25] MEDS ORDERED: OCTREOTIDE 100MCG/ML, 1ML (0.1MG/ML) SQ SCH (12:00)
[2017-11-25] MEDS: MICAFUNGIN 100 MG in SODIUM CHLORIDE 0.9% 100 ML IV SCH (12:30)
[2017-11-25] MEDS: OCTREOTIDE 100MCG/ML, 1ML (0.1MG/ML) SQ SCH ×2 (12:30→17:17)
[2017-11-25] MEDS: INSULIN REGULAR LOW DOSE QDAY SQ-INSULIN SCH (12:38)
[2017-11-25 13:04] VITALS: BP 150/83
[2017-11-25 13:53] VITALS: BP 134/81
[2017-11-25] MEDS ORDERED: AMINO ACID 10% IV SCH (17:00)
[2017-11-25] MEDS ORDERED: DEXTROSE 70% IV SCH (17:00)
[2017-11-25] MEDS ORDERED: [UNRECOGNIZED DRUG - OTHER] IV SCH (17:00)
[2017-11-25] MEDS ORDERED: FAT EMULSIONS IV SCH (17:00)
[2017-11-25] MEDS: FILTER, DISP 1.2 MICRON FOR TPN/PVN IV PRN (17:16)
[2017-11-25] MEDS: VANCOMYCIN 1,500 MG in SODIUM CHLORIDE 0.9% 250 ML IV SCH (17:17)
[2017-11-25 20:10] VITALS: BP 127/76
[2017-11-26] MEDS: HEPARIN 5,000 UNITS/ML, 1ML SQ SCH ×3 (00:28→17:05)
[2017-11-26 01:05] VITALS: BP 126/76
[2017-11-26] MEDS: MEROPENEM 1 GM in SODIUM CHLORIDE 0.9% 100 ML IV SCH ×4 (04:20→22:03)
[2017-11-26] MEDS: VANCOMYCIN 50 MG/ML ORAL SUSP PO SCH ×4 (04:30→22:03)
[2017-11-26 05:25] LABS: ALANINE AMINOTRANSFERASE 12 U/L (12-78); ALBUMIN 1.6 g/dL (3.4-5.0); ANION GAP 7 mmol/L (5-15); CALCIUM 7.8 mg/dL (8.5-10.1); CHLORIDE 106 mmol/L (98-107)
[2017-11-26 05:29] LABS: ALKALINE PHOSPHATASE 84 U/L (45-117); BILIRUBIN,TOTAL 0.8 mg/dL (0.2-1.0); CREATININE 0.88 mg/dL (0.55-1.02); PREALBUMIN 6.7 mg/dL (20.0-40.0); TOTAL PROTEIN 6.6 g/dL (6.4-8.2); TRIGLYCERIDES 123 mg/dL (50-200)
[2017-11-26 05:32] LABS: MEAN CORPUSCULAR HEMOGLOBIN 26.2 pg (27.0-34.8); MEAN CORPUSCULAR HGB CONC 32.6 g/dL (32.4-35.8); MEAN CORPUSCULAR VOLUME 80.4 fL (80-100); MEAN PLATELET VOLUME 9.9 fL (7.4-10.4); PLATELET COUNT 315 x10^3/uL (130-400); RED BLOOD COUNT 4.03 x10^6/uL (3.82-5.3); RED CELL DISTRIBUTION WIDTH 16.1 % (9.6-15.2)
[2017-11-26 06:14] LABS: MD YES
[2017-11-26 06:17] LABS: BAND#(MANUAL) 0.44 x10^3/uL; BANDS%(MANUAL) 4 % (0-7); BASOS#(MANUAL) 0.22 x10^3/uL (0-0.1); BASOS% (MANUAL) 2 % (0-1); EOS#(MANUAL) 0.55 x10^3/uL (0.0-0.4); EOS% (MANUAL) 5 % (1-7); LYMPH#(MANUAL) 1.85 x10^3/uL (1-3.4); LYMPHS% (MANUAL) 17 % (22-44); MONOS#(MANUAL) 1.09 x10^3/uL (0.3-2.7); MONOS% (MANUAL) 10 % (2-9); SEG#(MANUAL) 6.76 x10^3/uL (1.8-6.8); SEGS% (MANUAL) 62 % (42-75)
[2017-11-26 06:18] LABS: <PLATELET ESTIMATE> ADEQUATE; <PLT MORPHOLOGY> NORMAL PLT MORPH; ANISOCYTOSIS 1+; MICROCYTOSIS 1+; POLYCHROMASIA 1+
[2017-11-26 07:59] VITALS: BP 154/81
[2017-11-26] MEDS: OCTREOTIDE 100MCG/ML, 1ML (0.1MG/ML) SQ SCH ×3 (08:58→17:05)
[2017-11-26] MEDS: INSULIN REGULAR LOW DOSE QDAY SQ-INSULIN SCH (10:55)
[2017-11-26 12:27] VITALS: BP 145/81
[2017-11-26] MEDS: MICAFUNGIN 100 MG in SODIUM CHLORIDE 0.9% 100 ML IV SCH (13:32)
[2017-11-26] MEDS ORDERED: FAT EMULSIONS IV SCH (17:00)
[2017-11-26] MEDS ORDERED: AMINO ACID 10% IV SCH (17:00)
[2017-11-26] MEDS ORDERED: DEXTROSE 70% IV SCH (17:00)
[2017-11-26] MEDS ORDERED: [UNRECOGNIZED DRUG - OTHER] IV SCH (17:00)
[2017-11-26] MEDS: VANCOMYCIN 1,500 MG in SODIUM CHLORIDE 0.9% 250 ML IV SCH (17:05)
[2017-11-26] MEDS: FILTER, DISP 1.2 MICRON FOR TPN/PVN IV PRN (18:24)
[2017-11-26 19:26] VITALS: BP 153/79
[2017-11-27] MEDS: HEPARIN 5,000 UNITS/ML, 1ML SQ SCH ×3 (00:43→17:43)
[2017-11-27 01:12] VITALS: BP 159/81
[2017-11-27] MEDS: VANCOMYCIN 50 MG/ML ORAL SUSP PO SCH ×3 (03:48→17:43)
[2017-11-27 04:21] LABS: MEAN CORPUSCULAR HEMOGLOBIN 25.5 pg (27.0-34.8); MEAN CORPUSCULAR VOLUME 79.9 fL (80-100); MEAN PLATELET VOLUME 9.8 fL (7.4-10.4); PLATELET COUNT 314 x10^3/uL (130-400); RED CELL DISTRIBUTION WIDTH 15.7 % (9.6-15.2)
[2017-11-27 04:30] LABS: ANION GAP 8 mmol/L (5-15); CALCIUM 7.9 mg/dL (8.5-10.1); CHLORIDE 105 mmol/L (98-107); CREATININE 0.81 mg/dL (0.55-1.02)
[2017-11-27 05:55] LABS: BASOPHILS # (AUTO) 0.05 x10^3/uL (0-0.1); BASOPHILS % (AUTO) 1 % (0-1); EOSINOPHILS # (AUTO) 0.51 x10^3/uL (0-0.4); EOSINOPHILS % (AUTO) 5 % (1-7); LYMPHOCYTES # (AUTO) 1.28 x10^3/uL (1-3.4); LYMPHOCYTES % (AUTO) 13 % (22-44); MD SCAN; MONOCYTES # (AUTO) 1.31 x10^3/uL (0.2-0.8); MONOCYTES % (AUTO) 13 % (2-9); NEUTROPHILS # (AUTO) 6.78 x10^3/uL (1.8-6.8); NEUTROPHILS % (AUTO) 68 % (42-75)
[2017-11-27] MEDS: MEROPENEM 1 GM in SODIUM CHLORIDE 0.9% 100 ML IV SCH ×3 (06:38→22:28)
[2017-11-27 07:06] VITALS: BP 154/86
[2017-11-27] MEDS: OCTREOTIDE 100MCG/ML, 1ML (0.1MG/ML) SQ SCH ×3 (09:34→17:43)
[2017-11-27] MEDS: MICAFUNGIN 100 MG in SODIUM CHLORIDE 0.9% 100 ML IV SCH (11:24)
[2017-11-27] MEDS: INSULIN REGULAR LOW DOSE QDAY SQ-INSULIN SCH (11:24)
[2017-11-27 12:06] VITALS: BP 159/90
[2017-11-27] MEDS ORDERED: AMINO ACID 10% IV SCH (17:00)
[2017-11-27] MEDS ORDERED: [UNRECOGNIZED DRUG - OTHER] IV SCH (17:00)
[2017-11-27] MEDS ORDERED: DEXTROSE 70% IV SCH (17:00)
[2017-11-27] MEDS ORDERED: FAT EMULSIONS IV SCH (17:00)
[2017-11-27] MEDS: FILTER, DISP 1.2 MICRON FOR TPN/PVN IV PRN (19:08)
[2017-11-27 19:10] VITALS: BP 147/80
[2017-11-28] MEDS: VANCOMYCIN 50 MG/ML ORAL SUSP PO SCH ×4 (00:36→21:24)
[2017-11-28 01:15] VITALS: BP 141/85
[2017-11-28] MEDS: OCTREOTIDE 100MCG/ML, 1ML (0.1MG/ML) SQ SCH ×3 (05:07→21:24)
[2017-11-28] MEDS: HEPARIN 5,000 UNITS/ML, 1ML SQ SCH ×3 (05:07→21:24)
[2017-11-28] MEDS: VANCOMYCIN 1,500 MG in SODIUM CHLORIDE 0.9% 250 ML IV SCH (05:10)
[2017-11-28 05:15] LABS: MEAN CORPUSCULAR HEMOGLOBIN 25.7 pg (27.0-34.8); MEAN CORPUSCULAR HGB CONC 32.8 g/dL (32.4-35.8); MEAN CORPUSCULAR VOLUME 78.4 fL (80-100); MEAN PLATELET VOLUME 9.9 fL (7.4-10.4); PLATELET COUNT 283 x10^3/uL (130-400); RED BLOOD COUNT 3.99 x10^6/uL (3.82-5.3); RED CELL DISTRIBUTION WIDTH 15.6 % (9.6-15.2)
[2017-11-28 05:26] LABS: ANION GAP 8 mmol/L (5-15); CHLORIDE 103 mmol/L (98-107)
[2017-11-28 05:27] LABS: CREATININE 0.82 mg/dL (0.55-1.02)
[2017-11-28 05:51] LABS: BASOPHILS # (AUTO) 0.07 x10^3/uL (0-0.1); BASOPHILS % (AUTO) 1 % (0-1); EOSINOPHILS % (AUTO) 7 % (1-7); LYMPHOCYTES # (AUTO) 1.27 x10^3/uL (1-3.4); LYMPHOCYTES % (AUTO) 12 % (22-44); MD SCAN; MONOCYTES # (AUTO) 1.52 x10^3/uL (0.2-0.8); MONOCYTES % (AUTO) 15 % (2-9); NEUTROPHILS # (AUTO) 6.68 x10^3/uL (1.8-6.8); NEUTROPHILS % (AUTO) 65 % (42-75)
[2017-11-28 07:51] VITALS: BP 164/75
[2017-11-28] MEDS: MEROPENEM 1 GM in SODIUM CHLORIDE 0.9% 100 ML IV SCH ×3 (08:00→23:06)
[2017-11-28] MEDS: MICAFUNGIN 100 MG in SODIUM CHLORIDE 0.9% 100 ML IV SCH (13:30)
[2017-11-28] MEDS: INSULIN REGULAR LOW DOSE QDAY SQ-INSULIN SCH (13:30)
[2017-11-28 14:10] VITALS: BP 156/92
[2017-11-28] MEDS ORDERED: AMINO ACID 10% IV SCH (17:00)
[2017-11-28] MEDS ORDERED: [UNRECOGNIZED DRUG - OTHER] IV SCH (17:00)
[2017-11-28] MEDS ORDERED: DEXTROSE 70% IV SCH (17:00)
[2017-11-28] MEDS ORDERED: FAT EMULSIONS IV SCH (17:00)
[2017-11-28 19:18] VITALS: BP 151/82
[2017-11-29] VITALS (7 sets, daily range): BP systolic 123–162; BP diastolic 78–87
[2017-11-29] MEDS: VANCOMYCIN 50 MG/ML ORAL SUSP PO SCH ×4 (03:31→22:31)
[2017-11-29] MEDS: HEPARIN 5,000 UNITS/ML, 1ML SQ SCH ×3 (05:30→22:31)
[2017-11-29] MEDS: MEROPENEM 1 GM in SODIUM CHLORIDE 0.9% 100 ML IV SCH ×2 (07:33→16:35)
[2017-11-29] MEDS: OCTREOTIDE 100MCG/ML, 1ML (0.1MG/ML) SQ SCH ×3 (07:34→17:21)
[2017-11-29] MEDS: INSULIN REGULAR LOW DOSE QDAY SQ-INSULIN SCH (12:48)
[2017-11-29] MEDS: MICAFUNGIN 100 MG in SODIUM CHLORIDE 0.9% 100 ML IV SCH (12:49)
[2017-11-29] MEDS ORDERED: [UNRECOGNIZED DRUG - OTHER] IV SCH (17:00)
[2017-11-29] MEDS ORDERED: DEXTROSE 70% IV SCH (17:00)
[2017-11-29] MEDS ORDERED: AMINO ACID 10% IV SCH (17:00)
[2017-11-29] MEDS ORDERED: FAT EMULSIONS IV SCH (17:00)
[2017-11-29] MEDS: VANCOMYCIN 1,500 MG in SODIUM CHLORIDE 0.9% 250 ML IV SCH (17:27)
[2017-11-29] MEDS ORDERED: ONDANSETRON ODT 4 MG PO PRN (20:00)
[2017-11-30] MEDS: SODIUM CHLORIDE 0.9% 1,000 ML IV SCH (00:03)
[2017-11-30] MEDS: MEROPENEM 1 GM in SODIUM CHLORIDE 0.9% 100 ML IV SCH ×3 (00:04→17:35)
[2017-11-30 01:53] VITALS: BP 155/82
[2017-11-30] MEDS: VANCOMYCIN 50 MG/ML ORAL SUSP PO SCH ×4 (04:45→22:40)
[2017-11-30 05:32] LABS: BASOPHILS # (AUTO) 0.08 x10^3/uL (0-0.1); BASOPHILS % (AUTO) 1 % (0-1); EOSINOPHILS # (AUTO) 0.82 x10^3/uL (0-0.4); EOSINOPHILS % (AUTO) 7 % (1-7); LYMPHOCYTES # (AUTO) 1.21 x10^3/uL (1-3.4); LYMPHOCYTES % (AUTO) 10 % (22-44); MD NO; MEAN CORPUSCULAR HEMOGLOBIN 25.7 pg (27.0-34.8); MEAN CORPUSCULAR HGB CONC 32.3 g/dL (32.4-35.8); MEAN CORPUSCULAR VOLUME 79.6 fL (80-100); MEAN PLATELET VOLUME 10.9 fL (7.4-10.4); MONOCYTES # (AUTO) 1.31 x10^3/uL (0.2-0.8); MONOCYTES % (AUTO) 11 % (2-9); NEUTROPHILS # (AUTO) 8.58 x10^3/uL (1.8-6.8); NEUTROPHILS % (AUTO) 72 % (42-75); PLATELET COUNT 245 x10^3/uL (130-400)
[2017-11-30] MEDS: HEPARIN 5,000 UNITS/ML, 1ML SQ SCH ×3 (06:10→21:23)
[2017-11-30 06:35] LABS: ANION GAP 7 mmol/L (5-15); CALCIUM 8.3 mg/dL (8.5-10.1); CHLORIDE 104 mmol/L (98-107); CREATININE 0.76 mg/dL (0.55-1.02)
[2017-11-30 07:59] VITALS: BP 161/85
[2017-11-30] MEDS: OCTREOTIDE 100MCG/ML, 1ML (0.1MG/ML) SQ SCH ×3 (09:03→17:36)
[2017-11-30] MEDS: INSULIN REGULAR LOW DOSE QDAY SQ-INSULIN SCH (10:40)
[2017-11-30 11:43] LABS: ABSOLUTE RETICS # 0.115 x10^6/uL (0.5-2.5); RED BLOOD COUNT 4.22 x10^6/uL (3.82-5.3); RETICULOCYTE COUNT % 2.73 % (0.5-1.5)
[2017-11-30 12:50] VITALS: BP 160/94
[2017-11-30] MEDS: MICAFUNGIN 100 MG in SODIUM CHLORIDE 0.9% 100 ML IV SCH (12:56)
[2017-11-30] MEDS: LISINOPRIL 5 MG TABLET PO SCH (12:56)
[2017-11-30] MEDS ORDERED: AMINO ACID 10% IV SCH (17:00)
[2017-11-30] MEDS ORDERED: FAT EMULSIONS IV SCH (17:00)
[2017-11-30] MEDS ORDERED: [UNRECOGNIZED DRUG - OTHER] IV SCH (17:00)
[2017-11-30] MEDS ORDERED: DEXTROSE 70% IV SCH (17:00)
[2017-11-30] MEDS: FILTER, DISP 1.2 MICRON FOR TPN/PVN IV PRN (17:36)
[2017-11-30 19:17] VITALS: BP 156/85
[2017-12-01] MEDS: MEROPENEM 1 GM in SODIUM CHLORIDE 0.9% 100 ML IV SCH ×3 (00:34→17:21)
[2017-12-01 01:18] VITALS: BP 142/76
[2017-12-01] MEDS: VANCOMYCIN 1,500 MG in SODIUM CHLORIDE 0.9% 250 ML IV SCH (05:25)
[2017-12-01] MEDS: VANCOMYCIN 50 MG/ML ORAL SUSP PO SCH ×4 (05:25→22:20)
[2017-12-01] MEDS: HEPARIN 5,000 UNITS/ML, 1ML SQ SCH ×3 (05:26→21:17)
[2017-12-01 07:35] VITALS: BP 149/88
[2017-12-01] MEDS: LISINOPRIL 5 MG TABLET PO SCH (08:42)
[2017-12-01] MEDS: OCTREOTIDE 100MCG/ML, 1ML (0.1MG/ML) SQ SCH ×3 (08:43→17:23)
[2017-12-01] MEDS: INSULIN REGULAR LOW DOSE QDAY SQ-INSULIN SCH (11:00)
[2017-12-01] MEDS: IRON SUCROSE COMPLEX 100MG/5ML IV SCH (11:42)
[2017-12-01] MEDS: MICAFUNGIN 100 MG in SODIUM CHLORIDE 0.9% 100 ML IV SCH (12:31)
[2017-12-01 12:58] VITALS: BP 144/86
[2017-12-01] MEDS ORDERED: DEXTROSE 70% IV SCH (17:00)
[2017-12-01] MEDS ORDERED: AMINO ACID 10% IV SCH (17:00)
[2017-12-01] MEDS ORDERED: FAT EMULSIONS IV SCH (17:00)
[2017-12-01] MEDS ORDERED: [UNRECOGNIZED DRUG - OTHER] IV SCH (17:00)
[2017-12-01] MEDS: FILTER, DISP 1.2 MICRON FOR TPN/PVN IV PRN (17:41)
[2017-12-01 19:29] VITALS: BP 158/86
[2017-12-02] MEDS: MEROPENEM 1 GM in SODIUM CHLORIDE 0.9% 100 ML IV SCH ×3 (00:38→15:59)
[2017-12-02 01:27] VITALS: BP 147/81
[2017-12-02] MEDS: VANCOMYCIN 50 MG/ML ORAL SUSP PO SCH ×4 (04:53→22:40)
[2017-12-02] MEDS: HEPARIN 5,000 UNITS/ML, 1ML SQ SCH ×3 (04:53→21:33)
[2017-12-02 05:11] LABS: MEAN CORPUSCULAR HEMOGLOBIN 25.1 pg (27.0-34.8); MEAN CORPUSCULAR HGB CONC 32.1 g/dL (32.4-35.8); MEAN CORPUSCULAR VOLUME 78.2 fL (80-100); MEAN PLATELET VOLUME 11.5 fL (7.4-10.4); PLATELET COUNT 197 x10^3/uL (130-400); RED BLOOD COUNT 4.23 x10^6/uL (3.82-5.3); RED CELL DISTRIBUTION WIDTH 15.8 % (9.6-15.2)
[2017-12-02 05:19] LABS: CHLORIDE 106 mmol/L (98-107)
[2017-12-02 05:25] LABS: ANION GAP 7 mmol/L (5-15); CALCIUM 8.3 mg/dL (8.5-10.1); CREATININE 0.77 mg/dL (0.55-1.02)
[2017-12-02 05:56] LABS: BASOPHILS # (AUTO) 0.05 x10^3/uL (0-0.1); BASOPHILS % (AUTO) 0 % (0-1); EOSINOPHILS # (AUTO) 0.78 x10^3/uL (0-0.4); EOSINOPHILS % (AUTO) 6 % (1-7); LYMPHOCYTES # (AUTO) 1.19 x10^3/uL (1-3.4); LYMPHOCYTES % (AUTO) 9 % (22-44); MD SCAN; MONOCYTES # (AUTO) 1.29 x10^3/uL (0.2-0.8); MONOCYTES % (AUTO) 10 % (2-9); NEUTROPHILS # (AUTO) 9.78 x10^3/uL (1.8-6.8); NEUTROPHILS % (AUTO) 75 % (42-75)
[2017-12-02 07:54] VITALS: BP 155/91
[2017-12-02] MEDS: IRON SUCROSE COMPLEX 100MG/5ML IV SCH (08:01)
[2017-12-02] MEDS: LISINOPRIL 5 MG TABLET PO SCH (08:02)
[2017-12-02] MEDS: OCTREOTIDE 100MCG/ML, 1ML (0.1MG/ML) SQ SCH ×3 (09:46→17:39)
[2017-12-02] MEDS: INSULIN REGULAR LOW DOSE QDAY SQ-INSULIN SCH (11:09)
[2017-12-02] MEDS: MICAFUNGIN 100 MG in SODIUM CHLORIDE 0.9% 100 ML IV SCH (12:15)
[2017-12-02 12:49] VITALS: BP 144/84
[2017-12-02] MEDS: FILTER, DISP 1.2 MICRON FOR TPN/PVN IV PRN (16:56)
[2017-12-02] MEDS ORDERED: DEXTROSE 70% IV SCH (17:00)
[2017-12-02] MEDS ORDERED: FAT EMULSIONS IV SCH (17:00)
[2017-12-02] MEDS ORDERED: [UNRECOGNIZED DRUG - OTHER] IV SCH (17:00)
[2017-12-02] MEDS ORDERED: AMINO ACID 10% IV SCH (17:00)
[2017-12-02] MEDS: VANCOMYCIN 1,500 MG in SODIUM CHLORIDE 0.9% 250 ML IV SCH (17:39)
[2017-12-02 19:58] VITALS: BP 151/83
[2017-12-03] MEDS: MEROPENEM 1 GM in SODIUM CHLORIDE 0.9% 100 ML IV SCH ×3 (00:14→16:53)
[2017-12-03 01:29] VITALS: BP 146/79
[2017-12-03] MEDS: HEPARIN 5,000 UNITS/ML, 1ML SQ SCH ×3 (04:45→21:34)
[2017-12-03] MEDS: VANCOMYCIN 50 MG/ML ORAL SUSP PO SCH ×4 (04:46→22:34)
[2017-12-03 05:37] LABS: ANION GAP 8 mmol/L (5-15); CALCIUM 8.1 mg/dL (8.5-10.1); CHLORIDE 106 mmol/L (98-107)
[2017-12-03 05:59] LABS: CREATININE 0.84 mg/dL (0.55-1.02); PREALBUMIN 14.9 mg/dL (20.0-40.0)
[2017-12-03 07:56] VITALS: BP 139/83
[2017-12-03] MEDS: IRON SUCROSE COMPLEX 100MG/5ML IV SCH (08:11)
[2017-12-03] MEDS: LISINOPRIL 10 MG TABLET PO SCH (08:11)
[2017-12-03] MEDS: OCTREOTIDE 100MCG/ML, 1ML (0.1MG/ML) SQ SCH ×3 (08:24→17:56)
[2017-12-03] MEDS: INSULIN REGULAR LOW DOSE QDAY SQ-INSULIN SCH (11:17)
[2017-12-03] MEDS: MICAFUNGIN 100 MG in SODIUM CHLORIDE 0.9% 100 ML IV SCH (13:08)
[2017-12-03 13:58] VITALS: BP 138/77
[2017-12-03] MEDS: FILTER, DISP 1.2 MICRON FOR TPN/PVN IV PRN (16:54)
[2017-12-03] MEDS ORDERED: DEXTROSE 70% IV SCH (17:00)
[2017-12-03] MEDS ORDERED: FAT EMULSIONS IV SCH (17:00)
[2017-12-03] MEDS ORDERED: AMINO ACID 10% IV SCH (17:00)
[2017-12-03] MEDS ORDERED: [UNRECOGNIZED DRUG - OTHER] IV SCH (17:00)
[2017-12-03 19:28] VITALS: BP 166/83
[2017-12-03 20:33] VITALS: BP 148/69
[2017-12-04] MEDS: MEROPENEM 1 GM in SODIUM CHLORIDE 0.9% 100 ML IV SCH ×2 (00:12→09:03)
[2017-12-04 03:50] VITALS: BP 134/79
[2017-12-04] MEDS: VANCOMYCIN 50 MG/ML ORAL SUSP PO SCH ×4 (04:51→22:19)
[2017-12-04] MEDS: VANCOMYCIN 1,500 MG in SODIUM CHLORIDE 0.9% 250 ML IV SCH (04:51)
[2017-12-04] MEDS: HEPARIN 5,000 UNITS/ML, 1ML SQ SCH ×3 (04:51→20:52)
[2017-12-04 05:33] LABS: CHLORIDE 105 mmol/L (98-107)
[2017-12-04 05:42] LABS: MEAN CORPUSCULAR HEMOGLOBIN 25.8 pg (27.0-34.8); MEAN CORPUSCULAR HGB CONC 32.5 g/dL (32.4-35.8); MEAN CORPUSCULAR VOLUME 79.4 fL (80-100); RED BLOOD COUNT 4.18 x10^6/uL (3.82-5.3)
[2017-12-04 05:43] LABS: ANION GAP 9 mmol/L (5-15); CALCIUM 8.1 mg/dL (8.5-10.1); CREATININE 0.83 mg/dL (0.55-1.02)
[2017-12-04 06:29] LABS: MEAN PLATELET VOLUME 12.2 fL (7.4-10.4); PLATELET COUNT 174 x10^3/uL (130-400)
[2017-12-04 06:30] LABS: MD YES
[2017-12-04 06:32] LABS: BAND#(MANUAL) 0.25 x10^3/uL; BANDS%(MANUAL) 2 % (0-7); BASOS#(MANUAL) 0.13 x10^3/uL (0-0.1); BASOS% (MANUAL) 1 % (0-1); EOS#(MANUAL) 1.01 x10^3/uL (0.0-0.4); EOS% (MANUAL) 8 % (1-7); LYMPH#(MANUAL) 1.13 x10^3/uL (1-3.4); LYMPHS% (MANUAL) 9 % (22-44); METAMYELOCYTES# (MANUAL) 0.13 x10^3/uL (0-0); METAMYELOCYTES% (MANUAL) 1 % (0-1); MONOS#(MANUAL) 0.88 x10^3/uL (0.3-2.7); MONOS% (MANUAL) 7 % (2-9); SEG#(MANUAL) 9.07 x10^3/uL (1.8-6.8); SEGS% (MANUAL) 72 % (42-75)
[2017-12-04 06:35] LABS: ANISOCYTOSIS 1+
[2017-12-04 06:36] LABS: <PLATELET ESTIMATE> ADEQUATE; POLYCHROMASIA 1+
[2017-12-04 06:37] LABS: GIANT PLATELETS 1+; LARGE PLATELETS 1+
[2017-12-04 07:47] VITALS: BP 149/83
[2017-12-04] MEDS: OCTREOTIDE 100MCG/ML, 1ML (0.1MG/ML) SQ SCH ×3 (08:45→17:12)
[2017-12-04] MEDS: LISINOPRIL 10 MG TABLET PO SCH (08:52)
[2017-12-04] MEDS: IRON SUCROSE COMPLEX 100MG/5ML IV SCH (08:56)
[2017-12-04] MEDS: INSULIN REGULAR LOW DOSE QDAY SQ-INSULIN SCH (10:49)
[2017-12-04] MEDS: MICAFUNGIN 100 MG in SODIUM CHLORIDE 0.9% 100 ML IV SCH (11:55)
[2017-12-04 14:11] VITALS: BP 144/81
[2017-12-04] MEDS ORDERED: VISIPAQUE 270 MG/ML, 50ML BOTTLE ONE (15:42)
[2017-12-04] MEDS ORDERED: AMINO ACID 10% IV SCH (17:00)
[2017-12-04] MEDS ORDERED: FAT EMULSIONS IV SCH (17:00)
[2017-12-04] MEDS ORDERED: [UNRECOGNIZED DRUG - OTHER] IV SCH (17:00)
[2017-12-04] MEDS ORDERED: DEXTROSE 70% IV SCH (17:00)
[2017-12-04] MEDS: FILTER, DISP 1.2 MICRON FOR TPN/PVN IV PRN (17:11)
[2017-12-04 19:31] VITALS: BP 149/86
[2017-12-05 01:22] VITALS: BP 152/79
[2017-12-05] MEDS: VANCOMYCIN 50 MG/ML ORAL SUSP PO SCH ×4 (05:03→22:28)
[2017-12-05] MEDS: HEPARIN 5,000 UNITS/ML, 1ML SQ SCH ×3 (05:03→20:57)
[2017-12-05 05:37] LABS: BASOPHILS # (AUTO) 0.12 x10^3/uL (0-0.1); BASOPHILS % (AUTO) 1 % (0-1); EOSINOPHILS # (AUTO) 0.74 x10^3/uL (0-0.4); EOSINOPHILS % (AUTO) 7 % (1-7); LYMPHOCYTES # (AUTO) 1.26 x10^3/uL (1-3.4); LYMPHOCYTES % (AUTO) 11 % (22-44); MD NO; MEAN CORPUSCULAR HEMOGLOBIN 25.6 pg (27.0-34.8); MEAN CORPUSCULAR HGB CONC 32.3 g/dL (32.4-35.8); MEAN CORPUSCULAR VOLUME 79.2 fL (80-100); MEAN PLATELET VOLUME 12.5 fL (7.4-10.4); MONOCYTES # (AUTO) 1.17 x10^3/uL (0.2-0.8); MONOCYTES % (AUTO) 11 % (2-9); NEUTROPHILS # (AUTO) 7.86 x10^3/uL (1.8-6.8); NEUTROPHILS % (AUTO) 71 % (42-75); PLATELET COUNT 145 x10^3/uL (130-400); RED BLOOD COUNT 4.17 x10^6/uL (3.82-5.3)
[2017-12-05 07:57] VITALS: BP 147/83
[2017-12-05] MEDS: OCTREOTIDE 100MCG/ML, 1ML (0.1MG/ML) SQ SCH ×3 (10:12→17:03)
[2017-12-05] MEDS: IRON SUCROSE COMPLEX 100MG/5ML IV SCH (10:12)
[2017-12-05] MEDS: LISINOPRIL 10 MG TABLET PO SCH (10:13)
[2017-12-05] MEDS: INSULIN REGULAR LOW DOSE QDAY SQ-INSULIN SCH (10:14)
[2017-12-05] MEDS: MICAFUNGIN 100 MG in SODIUM CHLORIDE 0.9% 100 ML IV SCH (13:25)
[2017-12-05 14:15] VITALS: BP 145/85
[2017-12-05 14:51] LABS: ANION GAP 7 mmol/L (5-15); CALCIUM 8.2 mg/dL (8.5-10.1); CHLORIDE 104 mmol/L (98-107)
[2017-12-05 14:54] LABS: ALANINE AMINOTRANSFERASE 37 U/L (12-78); ALKALINE PHOSPHATASE 165 U/L (45-117); BILIRUBIN,TOTAL 0.7 mg/dL (0.2-1.0); CREATININE 0.82 mg/dL (0.55-1.02); TOTAL PROTEIN 7.3 g/dL (6.4-8.2)
[2017-12-05] MEDS ORDERED: FILTER, DISP 1.2 MICRON FOR TPN/PVN IV PRN (16:00)
[2017-12-05] MEDS ORDERED: AMINO ACID 10% IV SCH (17:00)
[2017-12-05] MEDS ORDERED: [UNRECOGNIZED DRUG - OTHER] IV SCH (17:00)
[2017-12-05] MEDS ORDERED: DEXTROSE 70% IV SCH (17:00)
[2017-12-05] MEDS ORDERED: FAT EMULSIONS IV SCH (17:00)
[2017-12-05] MEDS: VANCOMYCIN 1,500 MG in SODIUM CHLORIDE 0.9% 250 ML IV SCH (17:04)
[2017-12-05 19:10] VITALS: BP 146/82
[2017-12-06 01:10] VITALS: BP 137/82
[2017-12-06] MEDS: VANCOMYCIN 50 MG/ML ORAL SUSP PO SCH ×4 (05:37→22:25)
[2017-12-06] MEDS: HEPARIN 5,000 UNITS/ML, 1ML SQ SCH ×3 (05:37→20:51)
[2017-12-06 06:05] LABS: CHLORIDE 105 mmol/L (98-107)
[2017-12-06 06:09] LABS: MEAN CORPUSCULAR HEMOGLOBIN 25.3 pg (27.0-34.8); MEAN CORPUSCULAR HGB CONC 32.3 g/dL (32.4-35.8); MEAN CORPUSCULAR VOLUME 78.3 fL (80-100); RED CELL DISTRIBUTION WIDTH 16.3 % (9.6-15.2)
[2017-12-06 06:16] LABS: ALANINE AMINOTRANSFERASE 38 U/L (12-78); ALKALINE PHOSPHATASE 168 U/L (45-117); ANION GAP 8 mmol/L (5-15); BILIRUBIN,TOTAL 0.8 mg/dL (0.2-1.0); CALCIUM 8.3 mg/dL (8.5-10.1); CREATININE 0.84 mg/dL (0.55-1.02); TOTAL PROTEIN 7.5 g/dL (6.4-8.2)
[2017-12-06 06:33] LABS: BASOPHILS % (AUTO) 1 % (0-1); EOSINOPHILS # (AUTO) 0.59 x10^3/uL (0-0.4); EOSINOPHILS % (AUTO) 6 % (1-7); LYMPHOCYTES # (AUTO) 1.07 x10^3/uL (1-3.4); LYMPHOCYTES % (AUTO) 11 % (22-44); MD SCAN; MEAN PLATELET VOLUME 12.8 fL (7.4-10.4); MONOCYTES # (AUTO) 1.16 x10^3/uL (0.2-0.8); MONOCYTES % (AUTO) 12 % (2-9); NEUTROPHILS % (AUTO) 70 % (42-75); PLATELET COUNT 118 x10^3/uL (130-400)
[2017-12-06 07:05] VITALS: BP 129/53
[2017-12-06] MEDS: LISINOPRIL 20 MG TABLET PO SCH (09:11)
[2017-12-06] MEDS: INSULIN REGULAR LOW DOSE QDAY SQ-INSULIN SCH (09:11)
[2017-12-06] MEDS: OCTREOTIDE 100MCG/ML, 1ML (0.1MG/ML) SQ SCH ×3 (09:12→16:44)
[2017-12-06] MEDS: MICAFUNGIN 100 MG in SODIUM CHLORIDE 0.9% 100 ML IV SCH (11:58)
[2017-12-06 13:15] VITALS: BP 163/87
[2017-12-06 13:54] VITALS: BP 117/71
[2017-12-06] MEDS ORDERED: [UNRECOGNIZED DRUG - OTHER] IV SCH (17:00)
[2017-12-06] MEDS ORDERED: DEXTROSE 70% IV SCH (17:00)
[2017-12-06] MEDS ORDERED: AMINO ACID 10% IV SCH (17:00)
[2017-12-06] MEDS ORDERED: FILTER, DISP 1.2 MICRON FOR TPN/PVN IV PRN (17:00)
[2017-12-06] MEDS ORDERED: FAT EMULSIONS IV SCH (17:00)
[2017-12-06 19:48] VITALS: BP 156/86
[2017-12-07 03:09] VITALS: BP 160/89
[2017-12-07 04:49] LABS: ALANINE AMINOTRANSFERASE 36 U/L (12-78); ANION GAP 7 mmol/L (5-15); CALCIUM 8.1 mg/dL (8.5-10.1); CHLORIDE 105 mmol/L (98-107); CREATININE 0.81 mg/dL (0.55-1.02)
[2017-12-07 04:52] LABS: ALKALINE PHOSPHATASE 158 U/L (45-117); BILIRUBIN,TOTAL 0.8 mg/dL (0.2-1.0); TOTAL PROTEIN 7.3 g/dL (6.4-8.2); VANCOMYCIN,TROUGH 11.6 mcg/mL (5.0-10.0)
[2017-12-07] MEDS: HEPARIN 5,000 UNITS/ML, 1ML SQ SCH ×3 (05:06→20:25)
[2017-12-07] MEDS: VANCOMYCIN 50 MG/ML ORAL SUSP PO SCH ×4 (05:06→23:21)
[2017-12-07] MEDS: VANCOMYCIN 1,500 MG in SODIUM CHLORIDE 0.9% 250 ML IV SCH (05:06)
[2017-12-07 08:15] VITALS: BP 154/84
[2017-12-07] MEDS: OCTREOTIDE 100MCG/ML, 1ML (0.1MG/ML) SQ SCH ×3 (09:09→17:39)
[2017-12-07] MEDS: LISINOPRIL 20 MG TABLET PO SCH (09:09)
[2017-12-07] MEDS: INSULIN REGULAR LOW DOSE QDAY SQ-INSULIN SCH (10:56)
[2017-12-07] MEDS: MICAFUNGIN 100 MG in SODIUM CHLORIDE 0.9% 100 ML IV SCH (11:53)
[2017-12-07 14:30] VITALS: BP 169/93
[2017-12-07] MEDS ORDERED: [UNRECOGNIZED DRUG - OTHER] IV SCH (17:00)
[2017-12-07] MEDS ORDERED: FAT EMULSIONS IV SCH (17:00)
[2017-12-07] MEDS ORDERED: DEXTROSE 70% IV SCH (17:00)
[2017-12-07] MEDS ORDERED: AMINO ACID 10% IV SCH (17:00)
[2017-12-07] MEDS: FILTER, DISP 1.2 MICRON FOR TPN/PVN IV PRN (17:39)
[2017-12-07 20:21] VITALS: BP 154/79
[2017-12-08 01:30] VITALS: BP 149/84
[2017-12-08] MEDS: VANCOMYCIN 50 MG/ML ORAL SUSP PO SCH ×4 (05:09→23:13)
[2017-12-08] MEDS: HEPARIN 5,000 UNITS/ML, 1ML SQ SCH ×3 (05:09→20:29)
[2017-12-08 06:04] LABS: ALANINE AMINOTRANSFERASE 40 U/L (12-78); ALBUMIN 2.1 g/dL (3.4-5.0); ANION GAP 9 mmol/L (5-15); CALCIUM 8.4 mg/dL (8.5-10.1); CHLORIDE 104 mmol/L (98-107); CREATININE 0.85 mg/dL (0.55-1.02)
[2017-12-08 06:05] LABS: MEAN CORPUSCULAR HEMOGLOBIN 25.8 pg (27.0-34.8); MEAN CORPUSCULAR HGB CONC 32.6 g/dL (32.4-35.8); MEAN PLATELET VOLUME 12.5 fL (7.4-10.4); PLATELET COUNT 156 x10^3/uL (130-400); RED BLOOD COUNT 4.04 x10^6/uL (3.82-5.3); RED CELL DISTRIBUTION WIDTH 16.6 % (9.6-15.2)
[2017-12-08 06:06] LABS: ALKALINE PHOSPHATASE 156 U/L (45-117); BILIRUBIN,TOTAL 0.8 mg/dL (0.2-1.0); TOTAL PROTEIN 7.2 g/dL (6.4-8.2)
[2017-12-08 06:50] VITALS: BP 154/74
[2017-12-08 06:51] LABS: BASOPHILS # (AUTO) 0.11 x10^3/uL (0-0.1); BASOPHILS % (AUTO) 1 % (0-1); EOSINOPHILS # (AUTO) 0.49 x10^3/uL (0-0.4); EOSINOPHILS % (AUTO) 5 % (1-7); LYMPHOCYTES # (AUTO) 1.59 x10^3/uL (1-3.4); LYMPHOCYTES % (AUTO) 17 % (22-44); MD SCAN; MONOCYTES # (AUTO) 1.07 x10^3/uL (0.2-0.8); MONOCYTES % (AUTO) 11 % (2-9); NEUTROPHILS # (AUTO) 6.39 x10^3/uL (1.8-6.8); NEUTROPHILS % (AUTO) 66 % (42-75)
[2017-12-08] MEDS: LISINOPRIL 20 MG TABLET PO SCH (09:24)
[2017-12-08] MEDS: OCTREOTIDE 100MCG/ML, 1ML (0.1MG/ML) SQ SCH ×3 (11:13→17:51)
[2017-12-08] MEDS: INSULIN REGULAR LOW DOSE QDAY SQ-INSULIN SCH (11:17)
[2017-12-08] MEDS: MICAFUNGIN 100 MG in SODIUM CHLORIDE 0.9% 100 ML IV SCH (11:17)
[2017-12-08 12:41] VITALS: BP 167/84
[2017-12-08] MEDS ORDERED: AMINO ACID 10% IV SCH (17:00)
[2017-12-08] MEDS ORDERED: [UNRECOGNIZED DRUG - OTHER] IV SCH (17:00)
[2017-12-08] MEDS ORDERED: FAT EMULSIONS IV SCH (17:00)
[2017-12-08] MEDS ORDERED: DEXTROSE 70% IV SCH (17:00)
[2017-12-08] MEDS: VANCOMYCIN 1,500 MG in SODIUM CHLORIDE 0.9% 250 ML IV SCH (17:13)
[2017-12-08 19:48] VITALS: BP 163/90
[2017-12-09 02:50] VITALS: BP 152/80
[2017-12-09] MEDS: HEPARIN 5,000 UNITS/ML, 1ML SQ SCH ×3 (05:09→22:18)
[2017-12-09] MEDS: VANCOMYCIN 50 MG/ML ORAL SUSP PO SCH ×4 (05:09→23:23)
[2017-12-09 07:03] VITALS: BP 151/85
[2017-12-09] MEDS: LISINOPRIL 20 MG TABLET PO SCH (07:36)
[2017-12-09] MEDS: OCTREOTIDE 100MCG/ML, 1ML (0.1MG/ML) SQ SCH ×3 (07:37→17:24)
[2017-12-09] MEDS: MICAFUNGIN 100 MG in SODIUM CHLORIDE 0.9% 100 ML IV SCH (11:30)
[2017-12-09 13:10] VITALS: BP 150/79
[2017-12-09] MEDS ORDERED: [UNRECOGNIZED DRUG - OTHER] IV SCH (17:00)
[2017-12-09] MEDS ORDERED: FAT EMULSIONS IV SCH (17:00)
[2017-12-09] MEDS ORDERED: DEXTROSE 70% IV SCH (17:00)
[2017-12-09] MEDS ORDERED: AMINO ACID 10% IV SCH (17:00)
[2017-12-09] MEDS: INSULIN REGULAR MEDIUM DOSE QDAY SQ-INSULIN SCH (17:29)
[2017-12-09] MEDS: FILTER, DISP 1.2 MICRON FOR TPN/PVN IV PRN (17:29)
[2017-12-09 19:10] VITALS: BP 145/82
[2017-12-10 03:31] VITALS: BP 119/74
[2017-12-10] MEDS: VANCOMYCIN 1,500 MG in SODIUM CHLORIDE 0.9% 250 ML IV SCH (05:25)
[2017-12-10] MEDS: VANCOMYCIN 50 MG/ML ORAL SUSP PO SCH ×3 (05:25→18:23)
[2017-12-10] MEDS: INSULIN REGULAR MEDIUM DOSE QDAY SQ-INSULIN SCH ×2 (05:41→18:22)
[2017-12-10 06:03] LABS: ALANINE AMINOTRANSFERASE 33 U/L (12-78); ALBUMIN 2.1 g/dL (3.4-5.0); ANION GAP 7 mmol/L (5-15); CALCIUM 8.5 mg/dL (8.5-10.1); CHLORIDE 105 mmol/L (98-107); CREATININE 0.86 mg/dL (0.55-1.02)
[2017-12-10 06:08] LABS: ALKALINE PHOSPHATASE 150 U/L (45-117); PREALBUMIN 16.9 mg/dL (20.0-40.0); TOTAL PROTEIN 7.6 g/dL (6.4-8.2); TRIGLYCERIDES 182 mg/dL (50-200)
[2017-12-10] MEDS: HEPARIN 5,000 UNITS/ML, 1ML SQ SCH ×4 (06:24→22:00)
[2017-12-10 08:33] VITALS: BP 167/81
[2017-12-10] MEDS: LISINOPRIL 20 MG TABLET PO SCH (08:51)
[2017-12-10] MEDS: OCTREOTIDE 100MCG/ML, 1ML (0.1MG/ML) SQ SCH ×3 (08:52→18:23)
[2017-12-10] MEDS: MICAFUNGIN 100 MG in SODIUM CHLORIDE 0.9% 100 ML IV SCH (12:15)
[2017-12-10 15:11] VITALS: BP 158/90
[2017-12-10] MEDS ORDERED: AMINO ACID 10% IV SCH (17:00)
[2017-12-10] MEDS ORDERED: DEXTROSE 70% IV SCH (17:00)
[2017-12-10] MEDS ORDERED: FAT EMULSIONS IV SCH (17:00)
[2017-12-10] MEDS ORDERED: [UNRECOGNIZED DRUG - OTHER] IV SCH (17:00)
[2017-12-10] MEDS: FILTER, DISP 1.2 MICRON FOR TPN/PVN IV PRN (18:27)
[2017-12-10 19:29] VITALS: BP 157/84
[2017-12-11] MEDS: VANCOMYCIN 50 MG/ML ORAL SUSP PO SCH ×4 (00:14→18:44)
[2017-12-11 01:23] VITALS: BP 148/86
[2017-12-11] MEDS: INSULIN REGULAR MEDIUM DOSE QDAY SQ-INSULIN SCH ×2 (05:08→17:54)
[2017-12-11 05:25] LABS: CHLORIDE 105 mmol/L (98-107)
[2017-12-11 05:33] LABS: ANION GAP 7 mmol/L (5-15); CALCIUM 8.7 mg/dL (8.5-10.1); CREATININE 0.86 mg/dL (0.55-1.02)
[2017-12-11 06:17] LABS: MEAN CORPUSCULAR HEMOGLOBIN 25.6 pg (27.0-34.8); MEAN CORPUSCULAR HGB CONC 32.3 g/dL (32.4-35.8); MEAN CORPUSCULAR VOLUME 79.3 fL (80-100); MEAN PLATELET VOLUME 12.2 fL (7.4-10.4); PLATELET COUNT 184 x10^3/uL (130-400); RED BLOOD COUNT 4.09 x10^6/uL (3.82-5.3); RED CELL DISTRIBUTION WIDTH 17.7 % (9.6-15.2)
[2017-12-11 06:18] LABS: MD YES
[2017-12-11 06:29] LABS: <PLATELET ESTIMATE> ADEQUATE; <PLT MORPHOLOGY> NORMAL PLT MORPH; <RBC MORPHOLOGY> NORMAL; LYMPH#(MANUAL) 1.02 x10^3/uL (1-3.4); LYMPHS% (MANUAL) 10 % (22-44); MONOS% (MANUAL) 2 % (2-9); SEG#(MANUAL) 8.98 x10^3/uL (1.8-6.8); SEGS% (MANUAL) 88 % (42-75)
[2017-12-11] MEDS: ONDANSETRON 2MG/ML, 2ML IVPush PRN ×2 (07:36→22:54)
[2017-12-11 07:46] VITALS: BP 171/99
[2017-12-11] MEDS: OCTREOTIDE 100MCG/ML, 1ML (0.1MG/ML) SQ SCH ×3 (08:02→17:46)
[2017-12-11] MEDS: LISINOPRIL 20 MG TABLET PO SCH (10:00)
[2017-12-11] MEDS ORDERED: OMNIPAQUE 350 MG/ML, 100ML BOTTLE ONE (10:19)
[2017-12-11] MEDS: MICAFUNGIN 100 MG in SODIUM CHLORIDE 0.9% 100 ML IV SCH (11:54)
[2017-12-11] MEDS: HEPARIN 5,000 UNITS/ML, 1ML SQ SCH (12:50)
[2017-12-11 13:06] VITALS: BP 125/83
[2017-12-11] MEDS ORDERED: FAT EMULSIONS IV SCH (17:00)
[2017-12-11] MEDS ORDERED: DEXTROSE 70% IV SCH (17:00)
[2017-12-11] MEDS ORDERED: AMINO ACID 10% IV SCH (17:00)
[2017-12-11] MEDS ORDERED: [UNRECOGNIZED DRUG - OTHER] IV SCH (17:00)
[2017-12-11] MEDS: VANCOMYCIN 1,500 MG in SODIUM CHLORIDE 0.9% 250 ML IV SCH (17:46)
[2017-12-11 18:07] LABS: CLOSTRIDIUM DIFFICILE ANTIGEN NEGATIVE; CLOSTRIDIUM DIFFICILE TOXIN NEGATIVE (Negative)
[2017-12-11 20:36] VITALS: BP 136/87
[2017-12-12] MEDS: VANCOMYCIN 50 MG/ML ORAL SUSP PO SCH (00:47)
[2017-12-12 01:54] VITALS: BP 138/87
[2017-12-12] MEDS: INSULIN REGULAR MEDIUM DOSE QDAY SQ-INSULIN SCH ×2 (06:30→16:25)
[2017-12-12 06:35] LABS: ANION GAP 7 mmol/L (5-15); CALCIUM 8.1 mg/dL (8.5-10.1); CHLORIDE 105 mmol/L (98-107); CREATININE 0.91 mg/dL (0.55-1.02)
[2017-12-12 08:13] VITALS: BP 134/77
[2017-12-12] MEDS: OCTREOTIDE 100MCG/ML, 1ML (0.1MG/ML) SQ SCH ×3 (09:09→16:19)
[2017-12-12] MEDS: LISINOPRIL 20 MG TABLET PO SCH (09:09)
[2017-12-12] MEDS: SODIUM CHLORIDE 0.9% 1,000 ML IV SCH (12:09)
[2017-12-12] MEDS: MICAFUNGIN 100 MG in SODIUM CHLORIDE 0.9% 100 ML IV SCH (12:09)
[2017-12-12] MEDS ORDERED: LIDOCAINE-MPF 1%, 5ML ONE (12:38)
[2017-12-12] MEDS ORDERED: MIDAZOLAM 1 MG/ML, 5ML ONE ×2 (13:02)
[2017-12-12] MEDS ORDERED: FENTANYL PF 100 MCG/2ML ONE (13:02)
[2017-12-12] MEDS ORDERED: FLUMAZENIL 0.1 MG/1 ML, 5ML ONE (13:02)
[2017-12-12] MEDS ORDERED: NALOXONE 1 MG/ML, 2ML ONE (13:02)
[2017-12-12 14:05] VITALS: BP 135/79
[2017-12-12 14:08] VITALS: BP 139/84
[2017-12-12] MEDS: FILTER, DISP 1.2 MICRON FOR TPN/PVN IV PRN (16:29)
[2017-12-12] MEDS ORDERED: [UNRECOGNIZED DRUG - OTHER] IV SCH (17:00)
[2017-12-12] MEDS ORDERED: AMINO ACID 10% IV SCH (17:00)
[2017-12-12] MEDS ORDERED: DEXTROSE 70% IV SCH (17:00)
[2017-12-12] MEDS ORDERED: SMOF TPN IV SCH (17:00)
[2017-12-12] MEDS ORDERED: FAT EMUL IV SCH (17:00)
[2017-12-12 20:12] VITALS: BP 137/79
[2017-12-13 02:45] VITALS: BP 133/77
[2017-12-13] MEDS: VANCOMYCIN 1,500 MG in SODIUM CHLORIDE 0.9% 250 ML IV SCH (05:54)
[2017-12-13] MEDS: INSULIN REGULAR MEDIUM DOSE QDAY SQ-INSULIN SCH ×2 (06:15→17:08)
[2017-12-13 07:36] VITALS: BP 119/71
[2017-12-13] MEDS: LISINOPRIL 20 MG TABLET PO SCH (08:54)
[2017-12-13] MEDS: OCTREOTIDE 100MCG/ML, 1ML (0.1MG/ML) SQ SCH ×3 (10:02→18:32)
[2017-12-13] MEDS: MICAFUNGIN 100 MG in SODIUM CHLORIDE 0.9% 100 ML IV SCH (12:07)
[2017-12-13 13:31] VITALS: BP 139/85
[2017-12-13] MEDS ORDERED: AMINO ACID 10% IV SCH (17:00)
[2017-12-13] MEDS ORDERED: FAT EMUL IV SCH (17:00)
[2017-12-13] MEDS ORDERED: SMOF TPN IV SCH (17:00)
[2017-12-13] MEDS ORDERED: DEXTROSE 70% IV SCH (17:00)
[2017-12-13] MEDS ORDERED: [UNRECOGNIZED DRUG - OTHER] IV SCH (17:00)
[2017-12-13] MEDS: FILTER, DISP 1.2 MICRON FOR TPN/PVN IV PRN (17:09)
[2017-12-13 18:34] VITALS: BP 146/81
[2017-12-14 03:43] VITALS: BP 144/81
[2017-12-14] MEDS: VANCOMYCIN 1,500 MG in SODIUM CHLORIDE 0.9% 250 ML IV SCH (05:03)
[2017-12-14 05:39] LABS: ANION GAP 3 mmol/L (5-15); CHLORIDE 105 mmol/L (98-107)
[2017-12-14 05:41] LABS: CREATININE 0.86 mg/dL (0.55-1.02)
[2017-12-14] MEDS: INSULIN REGULAR MEDIUM DOSE QDAY SQ-INSULIN SCH (05:51)
[2017-12-14 06:21] LABS: MEAN CORPUSCULAR HEMOGLOBIN 26.1 pg (27.0-34.8); MEAN CORPUSCULAR HGB CONC 32.7 g/dL (32.4-35.8); MEAN CORPUSCULAR VOLUME 79.7 fL (80-100); PLATELET COUNT 170 x10^3/uL (130-400); RED BLOOD COUNT 3.61 x10^6/uL (3.82-5.3); RED CELL DISTRIBUTION WIDTH 17.2 % (9.6-15.2)
[2017-12-14 06:23] LABS: MD YES
[2017-12-14 06:26] LABS: BAND#(MANUAL) 0.28 x10^3/uL; BANDS%(MANUAL) 3 % (0-7); BASOS#(MANUAL) 0.18 x10^3/uL (0-0.1); BASOS% (MANUAL) 2 % (0-1); EOS#(MANUAL) 0.55 x10^3/uL (0.0-0.4); EOS% (MANUAL) 6 % (1-7); LYMPH#(MANUAL) 1.66 x10^3/uL (1-3.4); LYMPHS% (MANUAL) 18 % (22-44); MONOS#(MANUAL) 0.92 x10^3/uL (0.3-2.7); MONOS% (MANUAL) 10 % (2-9); SEG#(MANUAL) 5.61 x10^3/uL (1.8-6.8); SEGS% (MANUAL) 61 % (42-75)
[2017-12-14 06:32] LABS: <PLATELET ESTIMATE> ADEQUATE; ANISOCYTOSIS 1+; GIANT PLATELETS 1+; LARGE PLATELETS 2+; POLYCHROMASIA 1+
[2017-12-14 08:13] VITALS: BP 155/85
[2017-12-14] MEDS: OCTREOTIDE 100MCG/ML, 1ML (0.1MG/ML) SQ SCH ×3 (08:46→17:19)
[2017-12-14] MEDS: LISINOPRIL 20 MG TABLET PO SCH (08:46)
[2017-12-14] MEDS: MICAFUNGIN 100 MG in SODIUM CHLORIDE 0.9% 100 ML IV SCH (12:17)
[2017-12-14 12:38] VITALS: BP 165/81
[2017-12-14] MEDS: FAMOTIDINE 20 MG TABLET PO SCH (20:02)
[2017-12-14 20:03] VITALS: BP 154/86
[2017-12-15 01:24] VITALS: BP 118/74
[2017-12-15] MEDS: VANCOMYCIN 1,500 MG in SODIUM CHLORIDE 0.9% 250 ML IV SCH (05:06)
[2017-12-15 07:42] VITALS: BP 169/92
[2017-12-15] MEDS: LISINOPRIL 20 MG TABLET PO SCH (08:31)
[2017-12-15] MEDS: OCTREOTIDE 100MCG/ML, 1ML (0.1MG/ML) SQ SCH ×3 (09:32→17:34)
[2017-12-15] MEDS: MICAFUNGIN 100 MG in SODIUM CHLORIDE 0.9% 100 ML IV SCH (12:53)
[2017-12-15 14:20] VITALS: BP 135/79
[2017-12-15 21:39] VITALS: BP 146/73
[2017-12-15] MEDS: FAMOTIDINE 20 MG TABLET PO SCH (21:58)
[2017-12-16 01:29] VITALS: BP 137/82
[2017-12-16] MEDS: VANCOMYCIN 1,500 MG in SODIUM CHLORIDE 0.9% 250 ML IV SCH (05:02)
[2017-12-16 07:50] VITALS: BP 158/81
[2017-12-16] MEDS: LISINOPRIL 20 MG TABLET PO SCH (09:39)
[2017-12-16] MEDS: OCTREOTIDE 100MCG/ML, 1ML (0.1MG/ML) SQ SCH ×3 (09:39→18:12)
[2017-12-16] MEDS: MICAFUNGIN 100 MG in SODIUM CHLORIDE 0.9% 100 ML IV SCH (13:00)
[2017-12-16 14:18] VITALS: BP 145/81
[2017-12-16] MEDS: FAMOTIDINE 20 MG TABLET PO SCH (19:54)
[2017-12-16 19:55] VITALS: BP 164/94
[2017-12-16 20:00] VITALS: BP 148/86
[2017-12-17 00:44] VITALS: BP 147/81
[2017-12-17] MEDS: VANCOMYCIN 1,500 MG in SODIUM CHLORIDE 0.9% 250 ML IV SCH (05:07)
[2017-12-17 08:03] VITALS: BP 176/91
[2017-12-17] MEDS: LISINOPRIL 20 MG TABLET PO SCH (09:09)
[2017-12-17] MEDS: OCTREOTIDE 100MCG/ML, 1ML (0.1MG/ML) SQ SCH ×2 (09:09→12:27)
[2017-12-17] MEDS: MICAFUNGIN 100 MG in SODIUM CHLORIDE 0.9% 100 ML IV SCH (12:27)
[2017-12-17 13:48] VITALS: BP 158/88
[2017-12-17] MEDS ORDERED: HYDROcodone/APAP 5/325 TABLET PO PRN (15:00)
[2017-12-17] MEDS ORDERED: GADOBUTROL 10 MMOL/10 ML PFS ONE (17:38)
[2017-12-17] MEDS: ONDANSETRON 2MG/ML, 2ML IVPush PRN (18:10)
[2017-12-17] MEDS: FAMOTIDINE 20 MG TABLET PO SCH (20:04)
[2017-12-17] MEDS: LINEZOLID 600 MG TABLET PO SCH ×2 (20:04→21:00)
[2017-12-17 20:36] VITALS: BP 152/86
[2017-12-18 02:18] VITALS: BP 142/82
[2017-12-18 07:34] VITALS: BP 165/88
[2017-12-18] MEDS ORDERED: COLCHICINE 0.6 MG TABLET PO SCH (08:00)
[2017-12-18] MEDS ORDERED: FLUCONAZOLE 200 MG TABLET PO SCH (09:00)
[2017-12-18] MEDS: LINEZOLID 600 MG TABLET PO SCH (09:54)
[2017-12-18] MEDS: LISINOPRIL 20 MG TABLET PO SCH (09:55)
[2017-12-18] MEDS: PROMETHAZINE 25 MG/ML, 1ML IM PRN (12:56)
[2017-12-18 14:23] VITALS: BP 159/91
[2017-12-18] MEDS ORDERED: LINE600T7 PO (16:49)
[2017-12-18] MEDS ORDERED: LISI-170 PO (16:49)
[2017-12-18] MEDS ORDERED: ONDA4TAB13 PO (16:49)
[2017-12-18] MEDS ORDERED: FLUC200T PO (16:49)
[2017-12-18] MEDS ORDERED: COLC0.6T37 PO (16:49)
== END 2017-12-18 18:55 | disposition home health service (06) | DRG 853 ==
LOC: ED 07:56 → EDIP 08:49 → 3NW 10:28 → UNDODISIN 12-18 18:57
PROVIDERS: ADMIT Internal Medicine; ATTEND Hospitalist
PROC: 0D9670Z Drainage of Stomach with Drainage Device, Via Natural or Artificial Opening (ICD-10-PCS; 2017-11-08)
PROC: 0D1A0ZB Bypass Jejunum to Ileum, Open Approach (ICD-10-PCS; 2017-11-10)
PROC: 0DT80ZZ Resection of Small Intestine, Open Approach (ICD-10-PCS; 2017-11-10)
PROC: 0WUF0JZ Supplement Abdominal Wall with Synthetic Substitute, Open Approach (ICD-10-PCS; principal; 2017-11-10 13:30)
PROC: 0DQB0ZZ Repair Ileum, Open Approach (ICD-10-PCS; 2017-11-20)
PROC: 0DQA0ZZ Repair Jejunum, Open Approach (ICD-10-PCS; 2017-11-20)
PROC: 0W9F00Z Drainage of Abdominal Wall with Drainage Device, Open Approach (ICD-10-PCS; 2017-11-20)
PROC: 0WW Anatomical Regions, General, Revision (ICD-10-PCS; 2017-11-20)
PROC: 3E0436Z Introduction of Nutritional Substance into Central Vein, Percutaneous Approach (ICD-10-PCS; 2017-12-04)
PROC: 02HV33Z Insertion of Infusion Device into Superior Vena Cava, Percutaneous Approach (ICD-10-PCS; 2017-12-04)
PROC: B5181ZA Fluoroscopy of Superior Vena Cava using Low Osmolar Contrast, Guidance (ICD-10-PCS; 2017-12-04)
PROC: 0W2FX0Z Change Drainage Device in Abdominal Wall, External Approach (ICD-10-PCS; 2017-12-12)
DX: A41.9 Sepsis, unspecified organism (principal); E43 Unspecified severe protein-calorie malnutrition; K65.1 Peritoneal abscess; N17.9 Acute kidney failure, unspecified; A04.72 Enterocolitis due to Clostridium difficile, not specified as recurrent; E87.0 Hyperosmolality and hypernatremia; K56.50 Intestinal adhesions [bands], unspecified as to partial versus complete obstruction; K63.2 Fistula of intestine; K43.6 Other and unspecified ventral hernia with obstruction, without gangrene; E87.1 Hypo-osmolality and hyponatremia; N39.0 Urinary tract infection, site not specified; K43.0 Incisional hernia with obstruction, without gangrene; E83.39 Other disorders of phosphorus metabolism; R73.9 Hyperglycemia, unspecified; I10 Essential (primary) hypertension; B96.20 Unspecified Escherichia coli [E. coli] as the cause of diseases classified elsewhere; D50.9 Iron deficiency anemia, unspecified; Z68.35 Body mass index [BMI] 35.0-35.9, adult; I73.00 Raynaud's syndrome without gangrene; K56.41 Fecal impaction; M06.9 Rheumatoid arthritis, unspecified; M65.9 Synovitis and tenosynovitis, unspecified; Z85.038 Personal history of other malignant neoplasm of large intestine; Z87.440 Personal history of urinary (tract) infections; Z88.0 Allergy status to penicillin; Y92.89 Other specified places as the place of occurrence of the external cause
CPT/HCPCS: 36415; 36569; 49423; 71045; 74021; 74177; 74250; 74270; 75984; 76937; 77001; 80048; 80053; 80061; 80202; 81001; 82728; 82962; 83036; 83540; 83550; 83605; 83690; 83735; 84100; 84134; 84439; 84443; 84478; 84550; 85025; 85045; 87040; 87046; 87070; 87075; 87077; 87086; 87102; 87106; 87186; 87205; 87324; 87427; 88307; 93005; 96361; 96374; 99156; 99157; A9585; J0171; J0610; J0690; J0696; J0744; J1100; J1170; J1644; J1756; J1815; J2185; J2248; J2250; J2354; J2405; J2550; J2704; J2710; J3010; J3370; J3475; J3480; J3490; Q0162; Q9963; Q9966; Q9967; C1729; C1751; C1762; C1769; J0330; J0360; J2310; J2370; J3420; J7030; J7050; S0028

== ENCOUNTER 2018-01-20 14:56 | Inpatient (IN) | payer OTHER ==
[~2018-01-20] VITALS: Ht 154.9 cm; Wt 84.4 kg
[~2018-01-20 14:56] MED LIST changes: +COLC0.6T37 PO; +FLUC200T PO; +LINE600T7 PO; +LISI-170 PO; +ONDA4TAB13 PO
[2018-01-20] MEDS ORDERED: SODIUM CHLORIDE FLUSH 10ML SYR IVF ONE (15:30)
[2018-01-20 16:13] LABS: MEAN CORPUSCULAR HEMOGLOBIN 25.9 pg (27.0-34.8); MEAN CORPUSCULAR HGB CONC 32.4 g/dL (32.4-35.8); MEAN CORPUSCULAR VOLUME 80.1 fL (80-100); MEAN PLATELET VOLUME 10.3 fL (7.4-10.4); PLATELET COUNT 263 x10^3/uL (130-400); RED BLOOD COUNT 3.81 x10^6/uL (3.82-5.3); RED CELL DISTRIBUTION WIDTH 18.5 % (9.6-15.2)
[2018-01-20 16:22] LABS: ALBUMIN 2.4 g/dL (3.4-5.0); ANION GAP 10 mmol/L (5-15); CALCIUM 8.6 mg/dL (8.5-10.1); CHLORIDE 108 mmol/L (98-107)
[2018-01-20 16:59] LABS: MD YES
[2018-01-20 17:00] LABS: BAND#(MANUAL) 1.32 x10^3/uL; BANDS%(MANUAL) 7 % (0-7); BASOS#(MANUAL) 0.19 x10^3/uL (0-0.1); BASOS% (MANUAL) 1 % (0-1); EOS#(MANUAL) 0.19 x10^3/uL (0.0-0.4); EOS% (MANUAL) 1 % (1-7); LYMPH#(MANUAL) 0.19 x10^3/uL (1-3.4); LYMPHS% (MANUAL) 1 % (22-44); MONOS#(MANUAL) 0.19 x10^3/uL (0.3-2.7); MONOS% (MANUAL) 1 % (2-9); SEG#(MANUAL) 16.82 x10^3/uL (1.8-6.8); SEGS% (MANUAL) 89 % (42-75)
[2018-01-20 17:01] LABS: <PLATELET ESTIMATE> ADEQUATE; ANISOCYTOSIS 1+; LARGE PLATELETS 1+; MICROCYTOSIS 1+
[2018-01-20] MEDS ORDERED: OMNIPAQUE 350 MG/ML, 100ML BOTTLE ONE (17:08)
[2018-01-20] MEDS ORDERED: SODIUM CHLORIDE 0.9% 1,000 ML IV ONE (17:58)
[2018-01-20] MEDS ORDERED: CEFAZOLIN PMX 1GM/50ML 50 ML IV ONE (18:00)
[2018-01-20] MEDS ORDERED: CEFAZOLIN PMX 1GM/50ML 50 ML IV SCH (18:00)
[2018-01-20] MEDS ORDERED: SODIUM CHLORIDE FLUSH 10ML SYR IVF PRN (18:00)
[2018-01-20] MEDS ORDERED: CEFAZOLIN PMX 1GM/50ML 50 ML ONE (18:03)
[2018-01-20 18:52] VITALS: BP 130/80
[2018-01-20] MEDS ORDERED: COLC0.6T47 PO (19:17)
[2018-01-20] MEDS ORDERED: SODIUM CHLORIDE 0.9% 100 ML IV SCH (20:30)
[2018-01-20] MEDS ORDERED: ONDANSETRON ODT 4 MG PO PRN (20:30)
[2018-01-20 21:46] VITALS: BP 129/59
[2018-01-20] MEDS: SODIUM CHLORIDE 0.9% 1,000 ML IV SCH (22:10)
[2018-01-21 01:18] VITALS: BP 120/59
[2018-01-21] MEDS: SODIUM CHLORIDE 0.9% 1,000 ML IV SCH ×2 (04:50→12:33)
[2018-01-21 06:40] VITALS: BP 116/68
[2018-01-21] MEDS ORDERED: CEFAZOLIN 1,000 MG ONE (10:23)
[2018-01-21] MEDS ORDERED: PROPOFOL 10 MG/ML, 20ML ONE (10:23)
[2018-01-21] MEDS ORDERED: DEXAMETHASONE 4 MG/ML, 1ML ONE (10:23)
[2018-01-21 12:21] VITALS: BP 115/69
[2018-01-21] MEDS ORDERED: FENTANYL PF 100 MCG/2ML ONE (18:16)
[2018-01-21] MEDS ORDERED: ACETAMINOPHEN 650 MG/20.3 ML UDC ONE (19:14)
[2018-01-21] MEDS ORDERED: OXYcodone 5 MG/5 ML ORAL.SOL UDC ONE (19:14)
[2018-01-21] MEDS ORDERED: OXYcodone 5 MG/5 ML ORAL.SOL UDC PO PRN (19:30)
[2018-01-21] MEDS ORDERED: hydrALAzine 20 MG/ML, 1ML IV PRN (19:30)
[2018-01-21] MEDS ORDERED: ONDANSETRON ODT 8 MG PO PRN (19:30)
[2018-01-21] MEDS ORDERED: HYDROmorphone 1 MG/ML, 1ML IV PRN (19:30)
[2018-01-21] MEDS ORDERED: LABETALOL 5MG/ML, 20ML IV PRN (19:30)
[2018-01-21] MEDS ORDERED: FENTANYL PF 100 MCG/2ML IV PRN (19:30)
[2018-01-21] MEDS ORDERED: ACETAMINOPHEN 325 MG TABLET PO PRN ×2 (19:30→20:00)
[2018-01-21] MEDS ORDERED: ONDANSETRON ODT 4 MG PO PRN (20:00)
[2018-01-22 00:06] VITALS: BP 96/52
[2018-01-22] MEDS: CEFAZOLIN PMX 1GM/50ML 50 ML IV SCH ×2 (02:29→10:19)
[2018-01-22] MEDS: SODIUM CHLORIDE 0.9% 1,000 ML IV SCH ×2 (02:33→19:17)
[2018-01-22 04:15] VITALS: BP 105/61
[2018-01-22 05:25] LABS: MEAN CORPUSCULAR HEMOGLOBIN 26.1 pg (27.0-34.8); MEAN CORPUSCULAR HGB CONC 31.9 g/dL (32.4-35.8); MEAN CORPUSCULAR VOLUME 81.9 fL (80-100); MEAN PLATELET VOLUME 10.4 fL (7.4-10.4); PLATELET COUNT 249 x10^3/uL (130-400); RED BLOOD COUNT 3.81 x10^6/uL (3.82-5.3); RED CELL DISTRIBUTION WIDTH 18.8 % (9.6-15.2)
[2018-01-22 06:35] LABS: MD YES
[2018-01-22 06:37] LABS: BAND#(MANUAL) 0.58 x10^3/uL; BANDS%(MANUAL) 3 % (0-7); HYPOCHROMIA 1+; LYMPH#(MANUAL) 0.58 x10^3/uL (1-3.4); LYMPHS% (MANUAL) 3 % (22-44); METAMYELOCYTES# (MANUAL) 0.19 x10^3/uL (0-0); METAMYELOCYTES% (MANUAL) 1 % (0-1); MICROCYTOSIS 1+; MONOS#(MANUAL) 0.78 x10^3/uL (0.3-2.7); MONOS% (MANUAL) 4 % (2-9); OVALOCYTES 1+; SEG#(MANUAL) 17.27 x10^3/uL (1.8-6.8); SEGS% (MANUAL) 89 % (42-75)
[2018-01-22 06:38] LABS: <PLATELET ESTIMATE> ADEQUATE; LARGE PLATELETS 1+
[2018-01-22 07:58] VITALS: BP 123/67
[2018-01-22 13:05] VITALS: BP 124/64
[2018-01-22] MEDS: CEFTRIAXONE PMX 2GM/50ML 50 ML IVPB SCH (15:24)
[2018-01-22 20:34] VITALS: BP 106/62
[2018-01-23 02:59] VITALS: BP_SYST 113
[2018-01-23 05:16] LABS: MEAN CORPUSCULAR HEMOGLOBIN 25.9 pg (27.0-34.8); MEAN CORPUSCULAR HGB CONC 31.9 g/dL (32.4-35.8); MEAN CORPUSCULAR VOLUME 81.2 fL (80-100); MEAN PLATELET VOLUME 10.3 fL (7.4-10.4); PLATELET COUNT 246 x10^3/uL (130-400); RED BLOOD COUNT 3.52 x10^6/uL (3.82-5.3); RED CELL DISTRIBUTION WIDTH 18.5 % (9.6-15.2)
[2018-01-23 05:58] LABS: MD YES
[2018-01-23 06:00] LABS: ANISOCYTOSIS 1+; BAND#(MANUAL) 0.38 x10^3/uL; BANDS%(MANUAL) 2 % (0-7); EOS#(MANUAL) 0.19 x10^3/uL (0.0-0.4); EOS% (MANUAL) 1 % (1-7); HYPOCHROMIA 1+; LYMPH#(MANUAL) 0.96 x10^3/uL (1-3.4); LYMPHS% (MANUAL) 5 % (22-44); METAMYELOCYTES# (MANUAL) 0.38 x10^3/uL (0-0); METAMYELOCYTES% (MANUAL) 2 % (0-1); MICROCYTOSIS 1+; MONOS#(MANUAL) 0.57 x10^3/uL (0.3-2.7); MONOS% (MANUAL) 3 % (2-9); POLYCHROMASIA 1+; SEG#(MANUAL) 16.62 x10^3/uL (1.8-6.8); SEGS% (MANUAL) 87 % (42-75)
[2018-01-23 06:01] LABS: <PLATELET ESTIMATE> ADEQUATE; <PLT MORPHOLOGY> NORMAL PLT MORPH
[2018-01-23 08:23] VITALS: BP 128/55
[2018-01-23 12:37] VITALS: BP 123/68
[2018-01-23] MEDS: CEFTRIAXONE PMX 2GM/50ML 50 ML IVPB SCH (16:10)
[2018-01-23 20:06] VITALS: BP 133/78
[2018-01-24 03:51] VITALS: BP 129/72
[2018-01-24 05:32] LABS: MEAN CORPUSCULAR HEMOGLOBIN 26.1 pg (27.0-34.8); MEAN CORPUSCULAR HGB CONC 32.3 g/dL (32.4-35.8); MEAN CORPUSCULAR VOLUME 80.7 fL (80-100); PLATELET COUNT 276 x10^3/uL (130-400); RED BLOOD COUNT 3.73 x10^6/uL (3.82-5.3); RED CELL DISTRIBUTION WIDTH 18.8 % (9.6-15.2)
[2018-01-24 05:56] LABS: MD YES
[2018-01-24 05:58] LABS: BAND#(MANUAL) 0.41 x10^3/uL; BANDS%(MANUAL) 3 % (0-7); LYMPH#(MANUAL) 1.79 x10^3/uL (1-3.4); LYMPHS% (MANUAL) 13 % (22-44); METAMYELOCYTES# (MANUAL) 0.41 x10^3/uL (0-0); METAMYELOCYTES% (MANUAL) 3 % (0-1); MONOS#(MANUAL) 0.55 x10^3/uL (0.3-2.7); MONOS% (MANUAL) 4 % (2-9); MYELOCYTES# (MANUAL) 0.55 x10^3/uL (0-0); MYELOCYTES% (MANUAL) 4 % (0-0); SEG#(MANUAL) 10.07 x10^3/uL (1.8-6.8); SEGS% (MANUAL) 73 % (42-75)
[2018-01-24 05:59] LABS: ANISOCYTOSIS 1+; POLYCHROMASIA 1+
[2018-01-24 06:02] LABS: <PLATELET ESTIMATE> ADEQUATE; HYPOCHROMIA 1+
[2018-01-24 06:03] LABS: LARGE PLATELETS 1+
[2018-01-24 07:48] VITALS: BP 149/73
[2018-01-24] MEDS ORDERED: SULF1TAB24 PO (09:08)
[2018-01-24] MEDS ORDERED: ACET-1757 PO (09:09)
[2018-01-24 13:35] VITALS: BP 148/77
[2018-01-24] MEDS: CEFTRIAXONE PMX 2GM/50ML 50 ML IVPB SCH (15:05)
== END 2018-01-24 18:07 | disposition home health service (06) | DRG 856 ==
LOC: ED 17:59 → EDIP 18:00 → 4NOR 18:47
PROVIDERS: ADMIT Surgery; ATTEND Surgery
PROC: 0W9F0ZZ Drainage of Abdominal Wall, Open Approach (ICD-10-PCS; principal; 2018-01-21 17:30)
DX: T81.4XXA Infection following a procedure, initial encounter (principal); A41.9 Sepsis, unspecified organism; N17.0 Acute kidney failure with tubular necrosis; K63.2 Fistula of intestine; E44.0 Moderate protein-calorie malnutrition; L02.211 Cutaneous abscess of abdominal wall; Y83.4 Other reconstructive surgery as the cause of abnormal reaction of the patient, or of later complication, without mention of misadventure at the time of the procedure; Y92.9 Unspecified place or not applicable; Z85.038 Personal history of other malignant neoplasm of large intestine; I10 Essential (primary) hypertension; Z68.35 Body mass index [BMI] 35.0-35.9, adult
CPT/HCPCS: 36415; 74177; 80048; 82040; 85025; 87070; 87077; 87186; 87205; J0690; J0696; J1100; J2704; J3010; Q0162; Q9967; J7030